=== PATIENT | female | born 1995 | race African-American/Black ===

== ENCOUNTER 2024-08-02 17:33 | Emergency (ER) | payer OTHER, SELFPAY ==
--- NOTE | 2024-08-02 17:45 | RT.EKG_ITS ---
APPROVED REPORT Exam: Resting ECG Reason for Exam: cc Patient Location: E HR:78 bpm ECG Measurements Heart Rate 78 AXIS SC 148 P 57 QRSd 72 QRS 74 QT 359 T 55 QTc 409 Conclusion Sinus rhythm, rate 78 No interval abnormalities No STEMI No priors available for comparison
[2024-08-02 18:00] VITALS: BP 114/80; PULSE 95; RESP 22; TEMP 36.9; O2SAT 97
--- NOTE | 2024-08-02 18:45 | DI.RAD_ITS ---
Exam(s) XR CHEST 2V PA LATERAL EXAM: XR CHEST 2V PA LATERAL CLINICAL HISTORY: cough/hemoptysis TECHNIQUE: 2D digital imaging was performed. Two views. COMPARISON: None FINDINGS: HEART: Normal size. Aorta: Not dilated. PULMONARY VASCULATURE: Normal. MEDIASTINUM: Unremarkable. LUNGS: Rounded area the right hilum roughly 5 cm. Adjacent rounded nodule in the right upper lobe me asuring 2.2 cm. Atelectasis or infiltrate involving the right middle lobe. The left lung appears cl ear. PLEURAL SPACE: No pleural effusion or pneumothorax. BONE:Mild dextroscoliosis. SOFT TISSUES: Unremarkable. IMPRESSION: Right upper lobe and hilar masses and versus infiltrate atelectasis of the right middle lobe. The fi ndings could represent pneumonia with adenopathy versus malignancy. DATA REPOSITORY: RADIATION DOSE DELIVERED:
[2024-08-02 19:16] VITALS: RESP 16
--- NOTE | 2024-08-02 19:16 | DI.VRAD_ITS ---
PROCEDURE INFORMATION: Exam: XR Chest Exam date and time: 08/02/2024 19:04 Age: 29 years old Clinical indication: Cough/hemoptysis TECHNIQUE: Imaging protocol: Radiologic exam of the chest. Views: 2 views. COMPARISON: No relevant prior studies available. FINDINGS: Lungs: Rounded 5 cm right suprahilar lesion, 2 cm nodular density in either right upper lobe or superior segment right lower lobe. Mild central interstitial thickening. Pleural spaces: No pleural effusion. No pneumothorax. Heart/Mediastinum: No cardiomegaly. Bones/joints: Minimal lumbar dextroscoliosis. IMPRESSION: Rounded 5 cm right suprahilar lesion, 2 cm nodular density in either right upper lobe or superior segment right lower lobe. Differential diagnosis includes multifocal pneumonia versus malignancy and or metastatic lesions. Postcontrast CT is recommended for workup. Dictated and Authenticated by: Nakita Rodriguez MD. Orderin St. Mohsen Byrnes MD
[2024-08-02 19:32] LABS: COVID-19 PCR Negative (Negative); Influenza A PCR Negative (Negative); Influenza B PCR Negative (Negative); RSV PCR Negative (Negative)
[2024-08-02 19:33] LABS: Source Nasopharynx
[2024-08-02 19:34] LABS: Abs Immature Grans 0.07 10^3/uL (0.0-0.06); Absolute Basophil Count 0.07 10^3/uL (0.0-0.2); Absolute Eosinophil Count 0.36 10^3/uL (0.0-0.7); Absolute Neutrophil Count 12.87 10^3/uL (1.2-6.7); Basophils % 0.4 %; Eosinophils % 2.2 %; HCT 37.6 % (36.0-46.0); Immature Grans % 0.4 %; Lymphocytes % 14.5 %; MCH 33.2 pg (27.0-33.0); MCHC 34.6 % (32.0-36.0); MCV 96 fL (80-95); MPV 9.4 fL (8.0-11.0); Monocytes % 4.8 %; Neutrophils % 77.7 %; Platelet Count 287 10^3/uL (130-400); RBC 3.91 10^6/uL (3.93-5.22); RDW 13.3 % (11.7-14.6); RDW-SD 47.4 fL; WBC 16.57 10^3/uL (4.4-10.8)
[2024-08-02] MEDS: Ketorolac 15 MG/ML VIAL IVP (19:45)
[2024-08-02 19:49] LABS: ALT 23 U/L (14-59); AST 16 U/L (15-37); Albumin 4.2 g/dL (3.4-5.0); Alkaline Phosphatase 64 U/L (46-116); Anion Gap 11.1 mmol/L (3-11); BUN 12 mg/dL (7-18); Bilirubin, Total 0.34 mg/dL (0.2-1.0); CO2 25.9 mmol/L (21.0-32.0); CREATININE 0.7 mg/dL (0.55-1.02); Calcium 9.5 mg/dL (8.5-10.1); Chloride 104 mmol/L (98-107); Estimated GFR 119.24 (mL/min/1.73m2); Glucose 75 mg/dL (74-106); Magnesium 1.7 mg/dL (1.8-2.4); Potassium 3.8 mmol/L (3.5-5.1); Sodium 141 mmol/L (136-145); Total Protein 7.4 g/dL (6.4-8.2)
[2024-08-02] MEDS: Normal Saline - Diluent 50 ML VIAL IJ ×2 (19:58→21:05)
[2024-08-02] MEDS: Omnipaque 350 MG/ML 100 ML BTL 70 ML IJ ×2 (19:59→21:04)
--- NOTE | 2024-08-02 20:01 | DI.CT_ITS ---
Exam(s) CT CHEST W EXAM: CT CHEST W CLINICAL HISTORY: hemoptysis, OCPs. R. lung mass vs PNA on CXR TECHNIQUE: Imaging Protocol: Axial computed tomography images with coronal and sagittal reformatted images were created and reviewed. Computer aided detection (CAD) was utilized. CONTRAST MATERIAL: Intravenous: Omnipaque 350 Contrast volume:70 ml. COMPARISON: No exams were available for comparison FINDINGS: Pulmonary parenchyma/mediastinum and Fern: 5 centimeter right superior hilar mass which appears low-d ensity which likely indicates necrosis. This causes attenuation of the pulmonary arteries is well as bronchial obstruction. A roughly 2 cm. There is atelectasis versus postobstructive infiltrate in t he right middle lobe. Mild areas of infiltration also noted in the right upper lobe. There is a nod ule in the right lower lobe measuring 8.5 mm. An additional 4 millimeter nodule is noted in the righ t lower lobe. 6 millimeter nodule anterior left upper lobe. Pleura: No effusion. No pneumothorax. Heart: The heart is not dilated. No coronary artery calcifications are seen. Aorta: Thoracic aorta non-dilated. No atherosclerotic changes. Pulmonary arteries: No gross evidence of emboli. Upper abdomen: No acute findings. Bones: Mild dextroscoliosis. No lytic or blastic lesions are identified. Soft tissues: Unremarkable. IMPRESSION: 5 centimeter necrotic right perihilar mass causing vascular and bronchial attenuation as well as post obstructive atelectasis/pneumonia in the right middle lobe. Findings are highly suspicious for malig chito. Additional right upper lobe infiltrates also present. Nodules in the right lower and left up per lobes are likely metastatic. RADIATION DOSE DELIVERED: 82.73mGy.cm Total DLP DATA REPOSITORY: All CT scans at this facility are submitted to the National Radiology Data Registry (NRDR) Dose Index Registry (DIR) with the [employer] (ACR). RADIATION OPTIMIZATION: All CT scans at this facility use at least one of these dose optimization te chniques: automated exposure control; mA and/or kV adjustment per patient size (includes targeted exa ms where dose is matched to clinical indication); or iterative reconstruction.
[2024-08-02 20:04] LABS: D-Dimer 474 ng/mlFEU (<500)
--- NOTE | 2024-08-02 20:09 | ED.GENADUL_ITS ---
Discharge Plan Disposition Patient Disposition: Home Condition: Stable Discharge Details Clinical Impression: Cough with hemoptysis, Hilar mass, Obstructive pneumonia Primary Care Provider: Unknown,Unknown ED Provider: Soniya Gloria Home Meds and New Rx's Prescriptions: New doxycycline hyclate 100 mg capsule 100 mg PO BID 6 Days Qty: 12 0RF amoxicillin-pot clavulanate 875-125 mg tablet 1 tab PO BID 6 Days Qty: 12 0RF Discharge Instructions Instructions: Coughing up blood Additional Instructions: You were seen in the emergency department today for evaluation of chest pain, shortness of breath, and coughing up blood. In our department you had a full physical examination performed, had laboratory studies performed, and had a CT scan that showed a mass in your right lung which is very concerning for cancer. It is unclear without biopsies and further studies whether this is a cancer from the lung itself, or whether this is a metastatic tumor from another part of the body. You did not have any other findings on the remainder of your CT of your abdomen or pelvis. The mass is causing partial obstruction of one of your airways, and you have a pneumonia but has developed behind this obstruction. For this reason we have started you on 2 antibiotics. Please take all this medication until it is gone, even if you start to feel better. In total you should have 7 days worth of medications. You will be referred to the interventional pulmonology team at [facility], and they plan to see you very early next week, at which time you will likely have a procedure called a bronchoscopy for biopsy. They will contact you to schedule this, and we will let you know if they need any additional testing before that time. Reasons to come back to an emergency department include coughing up more than 1 tablespoon of blood at a time, or a total of half a cup of blood over 24 hours. Additionally, you should return if you have worsening shortness of breath, develop a fever, change in mentation, or any other symptoms that cause concern. You can always return to this emergency department, or go to [facility] if that is closer or easier. Please follow-up with your primary care provider in the next few days to discuss this visit and any symptoms that change, worsen, or persist. Thank you for allo wing us to be part of your care. HPI General Mode of arrival: ambulatory . Date/Time Provider Initiated Documentation: 08/02/24 18:12 . Limitations to Documentation: no limitations . Information obtained by: patient and old records reviewed . HPI Narrative: HPI: This is a 29-year-old female patient without significant past medical history presenting for evaluation of 2 weeks of cough and hemoptysis. The patient reports that she has had a frequent cough, and initially just thought it was her typical winter illnesses. She has had some pain most notably in the right side of her chest when she breathes or coughs, but for the last several days has noticed bright red blood in her sputum, which prompted her to seek care tonight. She has not had any sick contacts, fever or chills, does not take any blood thinning medications. She is on oral contraceptives, does not have any history of thromboembolic disease. She has been using Tylenol and ibuprofen in the outpatient environment to manage her symptoms. She states that she has a lump in her breast, was diagnosed with an abscess several years ago, this has recurred and she has not yet had an evaluation by her outpatient providers. Exam: Gen: Awake and alert, in no apparent distress HEENT: Non-icteric sclera Neck: Supple Lungs: No apparent respiratory distress, normal respiratory effort. Lung sounds clear and equal bilaterally without wheezing, rhonchi, rales CV: Appears well perfused, heart with regular rate and rhythm, strong distal pulses Abdomen: Non-distended MSK: Moves 4 extremities without apparent limitation in ROM Skin: Visualized skin without rashes, cyanosis. Neuro: Normal Gait, no obvious focal deficits or facial asymmetry. Speaks in full, clear sentences. Psych: Appropriate for situation. MDM: This is a 29-year-old female patient presenting for evaluation of right sided chest pain, cough, and hemoptysis. My differential includes but is not limited to pneumonia, pulmonary hemorrhage, pulmonary embolism, viral URI. The location of the chest pain and its association with respiration and cough make me less concerned for ACS or cardiac abnormalities. The patient is a cigarette smoker, and while young I did consider pulmonary mass or malignancy. We will obtain a workup to include CBC, CMP, magnesium, Fluvid, and D-dimer. We will obtain an EKG and a chest x-ray. ED Course: EKG evaluated by myself, showing no evidence of acute ischemia, making ACS highly unlikely in this otherwise young and healthy person. Fluvid negative, CBC notable for a leukocytosis to 16, no anemia or thrombocytopenia. Chemistry panel without significant electrolyte derangements other than a very mildly low magnesium, renal function normal, no evidence of liver dysfunction. Chest x-ray reviewed by myself, and radiology notes 2 lesions, a 5 cm rounded lesion in the suprahilar area, and a 2 cm density in the right lung, concerning for multifocal pneumonia versus malignancy. Given this concerning finding, we did proceed with CT chest with contrast. Given our concern for mass, the decision to conduct the study with venous timed contrast was made in conjunction with our radiology techs, understanding that this will be less optimized for pulmonary embolism, which is lower on the differential. Reassuringly, the D-dimer was negative. Unfortunately, the CT of the chest reveals a right hilar and suprahilar mass with central necrosis, malignant appearing with metastatic pulmonary nodules and mediastinal lymph nodes. She does have some postobstructive consolidation. This finding was shared with the patient, and given her report of a breast lump, an exam was performed that reveals a firm, nontender, mobile 1 cm mass in the superior aspect of the right breast, and 1/2 cm mobile mass at the 5 o'clock position under the areola of the right breast. No overlying skin changes, patient reports occasional mild whitish discharge from the right nipple after showering. [facility] oncology was consulted, and I did order a CT abdomen pelvis to complete her metastatic workup. This was reviewed by myself and radiology notes no acute abnormalities or primary tumor findings. I did consult [facility], spoke with oncology and pulmonology, who recommended urgent referral to interventional pulmonology for bronchoscopy. They also recommend starting the patient on Augmentin and doxycycline for her postobstructive pneumonia. I spent an extended period of time discussing the findings with the patient, our concerns for likely malignant diagnosis, as well as return precautions especially as regards her hemoptysis. At this time, the patient has had a full medical evaluation and is safe for discharge to home. They are hemodynamically stable, ambulatory, and tolerating PO. They are understanding of the follow-up plan and return precautions. They left our facility without incident. Soniya Gloria MD Related Data Home Medications ?Medication ?Instructions ?Recorded ?Confirmed amoxicillin 875 mg-potassium 1 tab PO BID 6 days #12 tabs 08/02/24 clavulanate 125 mg tablet doxycycline hyclate 100 mg capsule 100 mg PO BID 6 days #12 caps 08/02/24 Previous Rx's ?Medication ?Instructions ?Recorded amoxicillin 875 mg-potassium 1 tab PO BID 6 days #12 tabs 08/02/24 clavulanate 125 mg tablet doxycycline hyclate 100 mg capsule 100 mg PO BID 6 days #12 caps 08/02/24 General Stated Complaint: Chest Pain REX: 3 Course Vital Signs Vital signs: Vital Signs Temperature 36.9 C 08/02/24 18:00 Pulse 95 H 08/02/24 18:00 Respiratory Rate 22 08/02/24 18:00 Blood Pressure 114/80 08/02/24 18:00 Pulse Oximetry 97 08/02/24 18:00 Temperature 36.9 C 08/02/24 18:00 Temperature Source Oral 08/02/24 18:00 Pulse 95 H 08/02/24 18:00 Respiratory Rate 16 08/02/24 19:16 Respiratory Effort Normal 08/02/24 19:16 Respiratory Depth Normal 08/02/24 19:16 Respiratory Pattern Normal 08/02/24 19:16 Blood Pressure 114/80 08/02/24 18:00 Blood Pressure Position Sitting 08/02/24 18:00 Pulse Oximetry 97 08/02/24 18:00 Oxygen Delivery Method Room Air 08/02/24 18:00 Oxygen Flow Rate 0 08/02/24 18:00 Pain Level 5 08/02/24 19:45 Lab/Test Results Lab/Test Results: Laboratory Tests Range/Units 08/02/24 08/02/24 18:05 19:28 WBC (4.4-10.8) 10^3/uL 16.57 H RBC (3.93-5.22) 10^6/uL 3.91 L Hgb (11.2-15.7) g/dL 13.0 Hct (36.0-46.0) % 37.6 MCV (80-95) fL 96 H MCH (27.0-33.0) pg 33.2 H MCHC (32.0-36.0) % 34.6 RDW (11.7-14.6) % 13.3 Plt Count (130-400) 10^3/uL 287 MPV (8.0-11.0) fL 9.4 Immature Gran % % 0.4 Neutrophils % % 77.7 Lymphocytes % % 14.5 Monocytes % % 4.8 Eosinophils % % 2.2 Basophils % % 0.4 Nucleated RBC % (0.0-0.3) % 0.0 Absolute Neutrophils (1.2-6.7) 10^3/uL 12.87 H Absolute Lymphocytes (1.2-3.4) 10^3/uL 2.40 Absolute Monocytes (0.1-0.8) 10^3/uL 0.80 Absolute Eosinophils (0.0-0.7) 10^3/uL 0.36 Absolute Basophils (0.0-0.2) 10^3/uL 0.07 Sodium (136-145) mmol/L 141 Potassium (3.5-5.1) mmol/L 3.8 Chloride (98-107) mmol/L 104 Carbon Dioxide (21.0-32.0) mmol/L 25.9 Anion Gap (3-11) mmol/L 11.1 H BUN (7-18) mg/dL 12 Creatinine (0.55-1.02) mg/dL 0.7 Est GFR (CKD-EPI 2020) (mL/min/1.73m2) 119.24 Glucose (74-106) mg/dL 75 Calcium (8.5-10.1) mg/dL 9.5 Magnesium (1.8-2.4) mg/dL 1.7 L Total Bilirubin (0.2-1.0) mg/dL 0.34 AST (15-37) U/L 16 ALT (14-59) U/L 23 Alkaline Phosphatase (46-116) U/L 64 Total Protein (6.4-8.2) g/dL 7.4 Albumin (3.4-5.0) g/dL 4.2 COVID-19 Source Nasopharynx SARS-CoV-2 (PCR) (Negative) Negative Influenza Type A (PCR) (Negative) Negative Influenza Type B (PCR) (Negative) Negative RSV (PCR) (Negative) Negative POC- Test(urine) Negative Medical Decision Making Quality:SDOH Health Related Social Needs: Health related social needs problems related to housin g/economic circumstances (Z59.89) PFSH All Active Problems (Updated 08/02/24 @ 22:33 by Soniya Gloria MD) Obstructive pneumonia (Acute) Hilar mass (Acute) Cough with hemoptysis (Acute) Social History Smoking/Tobacco Use Status: Current every day Tobacco Type: cigarettes Tobacco: How many years used: 12 Smoking risk assessment performed?: Yes Alcohol Intake: current Alcohol Intake frequency: 0-2 drinks per day Alcohol type: wine Drug use: Occasionally Substance use type: marijuana Housing: house
--- NOTE | 2024-08-02 20:16 | DI.VRAD_ITS ---
PROCEDURE INFORMATION: Exam: CT Chest With Contrast; Diagnostic Exam date and time: 08/02/2024 19:56 Age: 29 years old Clinical indication: Abnormal findings; Abnormal radiologic exam of lung or chest; Hemoptysis, ocps. R. Lung mass vs pna on cxr TECHNIQUE: Imaging protocol: Diagnostic computed tomography of the chest with contrast. 3D rendering (Not supervised by radiologist): MIP and/or 3D reconstructed images were created by the technologist. Radiation optimization: All CT scans at this facility use at least one of these dose optimization techniques: automated exposure control; mA and/or kV adjustment per patient size (includes targeted exams where dose is matched to clinical indication); or iterative reconstruction. Contrast material: [id number]; Contrast volume: 70 ml; Contrast route: INTRAVENOUS (IV); COMPARISON: CR XR CHEST 2V PA LATERAL 08/02/2024 19:04 FINDINGS: Lungs: Centrally necrotic appearing masslike 5 x 4 x 5 cm right hilar/suprahilar lesion with satellite nodules right upper lobe as well as mild postobstructive consolidation right upper lobe and moderate postobstructive consolidation right middle lobe. Satellite nodules in right lower lobe and lingula are probably metastatic. Pleural spaces: No pneumothorax. No pleural effusion. Heart: No cardiomegaly. No pericardial effusion. Lymph nodes: Metastatic appearing middle and right hilar adenopathy. Vasculature: Mass effect on right upper and middle pulmonary artery branches with chronic morphology, from the right hilar mass. No gross PA filling defects on this phase of imaging. Bones/joints: No acute fracture or subluxation. Mild thoracic scoliosis. Soft tissues: No suspicious lesions. IMPRESSION: 1. Malignant appearing right hilar/suprahilar mass. Metastatic pulmonary nodules, likely metastatic mediastinal lymph nodes. [id number] right upper and right middle lobe postobstructive consolidation. 2. Additional findings as described. Dictated and Authenticated by: Nakita Rodriguez MD. Orderin [facility]. Mohsen Byrnes MD
--- NOTE | 2024-08-02 21:12 | DI.CT_ITS ---
Exam(s) CT ABDOMEN PELVIS W EXAM: CT ABDOMEN PELVIS W CLINICAL HISTORY: Eval malignancy. TECHNIQUE: Imaging Protocol: Axial computed tomography images with coronal and sagittal reformatted images were created and reviewed CONTRAST MATERIAL: Intravenous: Omnipaque 350 Contrast volume:70 ml Oral: no COMPARISON: No exams were available for comparison FINDINGS: ABDOMEN and PELVIS: Lung Bases: Right middle lobe infiltrate. Please see separate CT chest report. Liver: Normal density. No suspicious mass. Gallbladder and biliary tract: No radiodense calculus. No wall thickening or pericholecystic fluid. No biliary dilation. Pancreas: Normal density. No abnormal calcifications or inflammatory process. No evidence of mass. Spleen: Normal. Kidneys: Normal size, contour and axis. No radiodense stones. No obstructive uropathy. No suspicious masses seen. Adrenal glands: No masses seen. Vasculature: Abdominal aorta non-dilated. Soft tissues: Unremarkable. Bladder: No gross wall thickening. No calculi.No focal mass. Bowel: No obstruction. No bowel wall thickening. Appendix normal. Peritoneal cavity: No ascites. No focal collection. No mesenteric inflammatory response. No free air . Bones: Unremarkable for age. No lytic or blastic lesions Reproductive organs: IUD in uterus. Dominant left follicle. Lymph nodes: No pathologically enlarged lymph nodes. IMPRESSION:: No acute abnormality in the abdomen or pelvis. RADIATION DOSE DELIVERED: 287.16mGy.cm Total DLP DATA REPOSITORY: All CT scans at this facility are submitted to the National Radiology Data Registry (NRDR) Dose Index Registry (DIR) with the [employer] (ACR). RADIATION OPTIMIZATION: All CT scans at this facility use at least one of these dose optimization te chniques: automated exposure control; mA and/or kV adjustment per patient size (includes targeted exa ms where dose is matched to clinical indication); or iterative reconstruction.
--- NOTE | 2024-08-02 21:22 | DI.VRAD_ITS ---
PROCEDURE INFORMATION: Exam: CT Abdomen And Pelvis With Contrast Exam date and time: 08/02/2024 21:03 Age: 29 years old Clinical indication: Other: Eval malignancy TECHNIQUE: Imaging protocol: Computed tomography of the abdomen and pelvis with contrast. Radiation optimization: All CT scans at this facility use at least one of these dose optimization techniques: automated exposure control; mA and/or kV adjustment per patient size (includes targeted exams where dose is matched to clinical indication); or iterative reconstruction. Contrast material: [id number]; Contrast volume: 70 ml; Contrast route: INTRAVENOUS (IV); COMPARISON: CT CHEST W 08/02/2024 19:56 FINDINGS: Lungs: Regarding the lung bases, please see same day CT thorax. Liver: No mass. Gallbladder and biliary ducts: No calcified stones. No gross ductal dilation. Pancreas: No ductal dilation. No mass . Spleen: No splenomegaly or suspicious lesions. Adrenal glands: No suspicious mass. Kidneys and ureters: No hydronephrosis. No masses. Stomach and bowel: No obstruction. No mucosal thickening. Appendix: No evidence of appendicitis. Intraperitoneal space: No free air. No significant fluid collection. Vasculature: No abdominal aortic aneurysm. Lymph nodes: No significantly enlarged lymph nodes. Urinary bladder: Contrast in the urinary bladder, satisfactory appearance. Reproductive: Cystic 35 mm left adnexal structure, most likely a dominant physiologic follicle. IUD in the uterus in the expected position. Normal CT appearance of the right adnexa. Bones/joints: No acute fracture or subluxation. Soft tissues: No suspicious lesions. IMPRESSION: No focal pathology is seen. IUD in the uterus. Dictated and Authenticated by: Nakita Rodriguez MD. Orderin [facility]. Mohsen Byrnes MD
[2024-08-02] MEDS: Amox. 875/Clav. 125, 2 TABS/BTL 1 TAB PO (22:42)
[2024-08-02] MEDS: Amoxicillin 875/Clav. 125 TAB PO (22:43)
[2024-08-02] MEDS: Doxycycline Hyclate 100 MG CAP PO (22:43)
[2024-08-02] MEDS: Doxycycline Hyclate 100 MG, 2 CAPS/BTL PO (22:43)
[2024-08-02 22:48] VITALS: BP 112/78; PULSE 83; RESP 16; TEMP 36.8; O2SAT 98
--- NOTE | 2024-08-03 09:06 | NUR.NOTE ---
Nursing Note:Patient and mother had questions about the referral to [facility] [place] will happen. Instructions were [facility] would contact the patient
== END 2024-08-02 22:48 | disposition home or self-care (01) ==
PROVIDERS: Emergency Provider Emergency Medicine
DX: J18.8 Other pneumonia, unspecified organism (principal); R04.2 Hemoptysis; R05.9 Cough, unspecified; R06.02 Shortness of breath; R07.9 Chest pain, unspecified; R91.8 Other nonspecific abnormal finding of lung field; F17.210 Nicotine dependence, cigarettes, uncomplicated; Z59.89 Other problems related to housing and economic circumstances
CPT/HCPCS: 80053; 81025; 87637; 93005; 96374; 99285; 71046; 71260; 74177; 83735; 85025; 85379; 93010; J1885; J3490

== ENCOUNTER 2024-09-27 15:33 | Outpatient (CLI) | payer OTHER, SELFPAY ==
--- NOTE | 2024-09-27 | DI.RAD_ITS ---
Exam(s) XR HIP LT AP LAT ONLY EXAM: XR HIP LT AP LAT ONLY CLINICAL HISTORY: SEVERE SUDDEN ONSET PAIN, KNOWN ST IV NSCLC, LT PROX FEMUR METS. TECHNIQUE: 2D digital imaging was performed of the left hip. Two views were obtained. AP and later al views were obtained. COMPARISON: CT CT ABDOMEN PELVIS W from 08/02/2024 FINDINGS: BONES: No acute fracture is present. There is a destructive lesion involving the medial aspect of the proximal femoral diaphysis with extension into the lesser trochanter. JOINTS: No dislocation present. SOFT TISSUE: There is an IUD in the pelvis. IMPRESSION: Destructive lesion involving the medial aspect of the proximal femoral diaphysis. Metastatic disease is suspected. Primary osseous malignancy cannot be entirely excluded. DATA REPOSITORY: RADIATION DOSE DELIVERED:
== END 2024-09-27 15:53 ==
PROVIDERS: PCP Nurse Practitioner Family; Visit Provider Radiology Radiation Oncology
DX: Z79.51 Long term (current) use of inhaled steroids (principal); C79.51 Secondary malignant neoplasm of bone; M25.552 Pain in left hip
CPT/HCPCS: 73502

== ENCOUNTER 2024-09-28 15:21 | Inpatient (IN) | payer OTHER, SELFPAY ==
[2024-09-28] VITALS (52 sets, daily range): BP systolic 65–119; BP diastolic 23–85; PULSE 94–120; RESP 14–40; TEMP 36.3–36.9; O2SAT 93–100
--- NOTE | 2024-09-28 15:43 | W.ED.GENAD ---
Discharge Plan Disposition Patient Disposition: Admit to [facility] Condition: Stable Discharge Details Clinical Impression: Intractable pain, Metastatic lung cancer (metastasis from lung to other site) Admit Date/Time: 09/28/24 21:36 Admit Provider: Guillermo Gomes Attending Provider: Guillermo Gomes Primary Care Provider: Tania Lezama ED Provider: Joana Melgar General Mode of arrival: ambulatory. Date/Time Provider Initiated Documentation: 09/28/24 15:24. Limitations to Documentation: no limitations. Information obtained by: patient, RN notes reviewed and old records reviewed. HPI Narrative: 29-year-old female presents to the ER with a chief complaint of severe left hip pain and right shoulder pain which has been worsening over the last couple of days. Patient was recently diagnosed with a lung mass with mets to the left hip in July of this year. She recently started Chemotherapy on Tuesday and had a right breast biopsy on September 26. She reports taking three 5 mg oxycodones at a time along with Tylenol and ibuprofen and she did put a fentanyl patch on last night around 8 PM which she currently has at this time. She reports sharp shooting pains to her left hip and inability to sleep due to the pain. She denies any fever or chills or any other associated symptoms or concerns denies any recent trauma or falls. She is tachycardic upon arrival. Of note she did have x-rays done yesterday here at this facility which showed a destructive lesion to the left hip with extension into the trochanter. Related Data Home Medications ?Medication ?Instructions ?Recorded ?Confirmed codeine 10 mg-guaifenesin 100 mg/5 5 ml PO Q4H PRN 08/24/24 09/28/24 mL oral liquid dorzolamide 2 % eye drops 1 drp ophthalmic (eye) BID 08/24/24 09/28/24 latanoprost 0.005 % eye drops 1 drp ophthalmic (eye) QPM 08/24/24 09/28/24 levonorgestrel 14 mcg/24 hr (up to 1 device intrauterine ONCE 08/24/24 09/28/24 3 yrs) 13.5 mg intrauterine device prednisolone acetate 1 % eye 1 drp ophthalmic (eye) TID 08/24/24 09/28/24 drops,suspension albuterol 90 mcg/actuation aerosol 180 mcg inhalation Q4H PRN 09/28/24 09/28/24 inhaler brimonidine 0.2 %-timolol 0.5 % 1 drp ophthalmic (eye) TID 09/28/24 09/28/24 eye drops (Combigan) carboplatin IV 09/28/24 celecoxib 200 mg capsule (Celebrex) 200 mg PO BID 09/28/24 09/28/24 dexamethasone 4 mg tablet 4 mg PO DAILY 09/28/24 09/28/24 duloxetine 30 mg capsule,delayed 30 mg PO DAILY 09/28/24 09/28/24 release (Cymbalta) durvalumab IV 09/28/24 fentanyl 12 mcg/hr transdermal 1 patch transdermal Q72H 09/28/24 09/28/24 patch folic acid 1 mg tablet 1 mg PO DAILY 09/28/24 09/28/24 oxycodone 5 mg tablet 10 mg PO Q4H 09/28/24 09/28/24 pemetrexed IV 09/28/24 prochlorperazine maleate 10 mg 10 mg PO Q6H PRN 09/28/24 09/28/24 tablet (Compazine) tremelimumab-actl IV 09/28/24 Allergies Allergy/AdvReac Type Severity Reaction Status Date / Time No Known Allergies Allergy Verified 09/28/24 15:30 General Stated Complaint: GenMedical REX: 3 Review of Systems All systems reviewed & are unremarkable except as noted in HPI and below Constitutional Constitutional: Reports as per HPI, Reports body ache(s) and Denies fever(s) Cardiovascular Cardiovascular: Reports dyspnea on exertion Respiratory Respiratory: Reports cough, Denies hemoptysis, Denies excessive phlegm production and Reports dyspnea on exertion Gastrointestinal Gastrointestinal: Denies diarrhea, Denies nausea and Denies vomiting Musculoskeletal Musculoskeletal: Reports as per HPI, Reports arthralgias (Right shoulder and left leg) and Reports radiating pain into limb Exam Narrative Exam Narrative: Constitutional: Alert and oriented x3. Appears stated age. Thin body habitus. Head: Normocephalic, no trauma. Eyes: Pupils PERRL, Red reflex noted, EOM's intact. Eyelids symmetrical without lesions, discharge, or swelling. ENT: Bilateral TM's WNL, External ear normal to inspection, no mastoid TTP, swelling, or erythema, Nasal turbinates WNL, no nasal discharge. Normal dentition, Posterior pharynx WNL, no exudate. Chest: Tachycardic upon arrival, rate of 120 normal S1, S2, distal pulses intact. Resp: Absent lung sounds noted on the right, lungs clear to auscultation on the left. Abdomen: Soft, non-distended, Normoactive bowel sounds all 4 quads. Approximately 3 cm palpable nodule noted to her anterior mid abdomen. Musculoskeletal: Normal gait, Moves all 4 extremities without difficulty. Skin: Capillary refill less than 2 sec. Neurologic: Cranial nerves II-XII intact. Alert and oriented x 3. Motor: No deficits noted. Sensory: Intact bilaterally all 4 extremities. Hematologic/Lymphatic: No ecchymosis, no lymphadenopathy. Course Vital Signs Vital signs: Vital Signs Temperature 36.8 C 09/28/24 15:25 Pulse 120 H 09/28/24 15:25 Respiratory Rate 22 09/28/24 15:25 Blood Pressure 119/85 09/28/24 15:25 Pulse Oximetry 99 09/28/24 15:25 Temperature 36.8 C 09/28/24 15:32 Temperature Source Oral 09/28/24 15:32 Pulse 120 H 09/28/24 15:32 Respiratory Rate 22 09/28/24 15:32 Blood Pressure 119/85 09/28/24 15:32 Blood Pressure Position Sitting 09/28/24 15:32 Pulse Oximetry 99 09/28/24 15:32 Oxygen Delivery Method Room Air 09/28/24 15:32 Oxygen Flow Rate 0 09/28/24 15:32 Pain Level 8 09/28/24 15:32 Medical Decision Making 29-year-old female presents to the ER with a chief complaint of severe left hip pain and right shoulder pain which has been worsening over the last couple of days. Patient was recently diagnosed with a lung mass with mets to the left hip in July of this year. She recently started Chemotherapy on Tuesday and had a right breast biopsy on September 26. She reports taking three 5 mg oxycodones at a time along with Tylenol and ibuprofen and she did put a fentanyl patch on last night around 8 PM which she currently has at this time. She reports sharp shooting pains to her left hip and inability to sleep due to the pain. She denies any fever or chills or any other associated symptoms or concerns denies any recent trauma or falls. She is tachycardic upon arrival. Of note she did have x-rays done yesterday here at this facility which showed a destructive lesion to the left hip with extension into the trochanter. Workup ordered including CBC CMP, CT pelvis and extremity and a chest x-ray. Given 0.5 mg of Dilaudid IV. Chest x-ray looks markedly worse on the right side however this could be due to the fact that she recently had a breast biopsy and started chemotherapy today. Her white blood cell count is 20,000, I did discuss some additional imaging including a CT of her chest to rule out pneumonia which she verbalized understanding with and is in agreement with. HR improved to 103 at this time. 1758: [facility] [place] consult with oncology. Request that radiology push the [place] [facility] [place] Of note patient is reporting a palpable mass noted to her mid abdomen above her umbilicus. She reports that she mentioned it to her oncology team and they told her it was due to her coughing. It does feel firm, and movable. She reports that it is slightly tender. On the chest CT from August 02 it does not appear to be there. 1829: Spoke with Dr. Pham with Heme onc, who reports that patient got Immunotherapy and chemotherapy he recommends troponin to rule out myocarditis, and that this WBC count is not expected. At this time the CT results show progression of the disease with complete obstruction of the right main pulmonary artery, right mainstem bronchus and the right upper lobe pulmonary veins. The right pulmonary arteries do not opacify secondary to the obstruction and there is no evidence of a left-sided pulmonary embolism. 1842: [facility] [place] and to speak with cardio-thoracic specialist. They will call back. 1844: Spoke with Dr. Zapata hospitalist and Dr. Mason with Thoracic surgery discussed patient case in details with them they were not able to view her CT from today. That image was pushed. At this time they are recommending further evaluation if pneumonia is a possibility they do not recommend antibiotics at this time. I did add on a lactate procalcitonin and blood cultures to further eval if this is an infectious versus mechanical lung disease. They do recommend to contact them if patient's condition changes. Will contact hospitalist. Dr. Zapata is the accepting physician. 2100: Spoke with Dr. bird with Hospitalist who agrees to accept patient for admission here pending [place] [facility] [place] Patient transferred up to the floor in hemodynamically stable condition. Bedside POCUS cardiac exam performed with Dr. Acevedo, normal cardiac function noted. Please see his procedure note. This text was generated using [employer] dictation system, please disregard any oddities of phrase or misspellings. Medical Records Medical records reviewed: Yes I reviewed the patient's medical records. Medical records narrative: X-ray results from 09/27/2024 EXAM: XR HIP LT AP LAT ONLY CLINICAL HISTORY: SEVERE SUDDEN ONSET PAIN, KNOWN ST IV NSCLC, LT PROX FEMUR METS. TECHNIQUE: 2D digital imaging was performed of the left hip. Two views were obtained. AP and lateral views were obtained. COMPARISON: CT CT ABDOMEN PELVIS W from 08/02/2024 FINDINGS: BONES: No acute fracture is present. There is a destructive lesion involving the medial aspect of the proximal femoral diaphysis with extension into the lesser trochanter. JOINTS: No dislocation present. SOFT TISSUE: There is an IUD in the pelvis. IMPRESSION: Destructive lesion involving the medial aspect of the proximal femoral diaphysis. Metastatic disease is suspected. Primary osseous malignancy cannot be entirely excluded. Imaging Data Radiologic Study: Imaging: X-Ray Radiologist's impression: FINDINGS: MEDIASTINUM: Normal. HEART: Normal. PULMONARY VASCULATURE: Normal. LUNGS: The left lung remains clear and hyperlucent. In the right lung, there is now elevation of the right hemidiaphragm suggesting volume loss. There is a central opacity again seen consistent with the patient's known carcinoma. There is a most likely postobstructive atelectasis. PLEURAL SPACE: No pleural effusion or pneumothorax. BONE:Within normal limits for the patient's age. There is a right convex curvature of the thoracolumbar spine again seen. OTHER FINDINGS:Normal. IMPRESSION: 1. Interval right hemithorax volume loss with elevation of the right hemidiaphragm and a rightward shift of the midline. 2. The patient has a known central right hilar lung carcinoma. There is now opacification involving the inferior half of the lung likely reflect reflecting postobstructive atelectasis or possible pneumonia. 3. The left lung remains clear Lab Data Lab results reviewed: Yes I reviewed the patient's lab results. Labs: Laboratory Tests Range/Units 09/28/24 15:48 WBC (4.4-10.8) 10^3/uL 20.93 H RBC (3.93-5.22) 10^6/uL 4.17 Hgb (11.2-15.7) g/dL 14.1 Hct (36.0-46.0) % 41.3 MCV (80-95) fL 99 H MCH (27.0-33.0) pg 33.8 H MCHC (32.0-36.0) % 34.1 RDW (11.7-14.6) % 13.5 Plt Count (130-400) 10^3/uL 300 MPV (8.0-11.0) fL 8.9 Immature Gran % % 0.6 Neutrophils % % 91.7 Lymphocytes % % 5.1 Monocytes % % 1.3 Eosinophils % % 1.1 Basophils % % 0.2 Nucleated RBC % (0.0-0.3) % 0.0 Absolute Neutrophils (1.2-6.7) 10^3/uL 19.19 H Absolute Lymphocytes (1.2-3.4) 10^3/uL 1.07 L Absolute Monocytes (0.1-0.8) 10^3/uL 0.27 Absolute Eosinophils (0.0-0.7) 10^3/uL 0.23 Absolute Basophils (0.0-0.2) 10^3/uL 0.04 Sodium (136-145) mmol/L 134 L Potassium (3.5-5.1) mmol/L 3.9 Chloride (98-107) mmol/L 98 Carbon Dioxide (21.0-32.0) mmol/L 25.8 Anion Gap (3-11) mmol/L 10.2 BUN (7-18) mg/dL 16 Creatinine (0.55-1.02) mg/dL 0.7 Est GFR (CKD-EPI 2020) (mL/min/1.73m2) 119.24 Glucose (74-106) mg/dL 127 H Calcium (8.5-10.1) mg/dL 10.8 H Magnesium (1.8-2.4) mg/dL 1.8 Total Bilirubin (0.2-1.0) mg/dL 1.0 AST (15-37) U/L 67 H ALT (14-59) U/L 75 H Alkaline Phosphatase (46-116) U/L 80 Total Protein (6.4-8.2) g/dL 8.1 Albumin (3.4-5.0) g/dL 4.4 Quality:SDOH Health Related Social Needs: Health related social needs problems related to housing/economic circumstances (Z59.89) 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 PAWSS Have you Been Recently Intoxicated or Drunk Within the Last 30 days?: No Have you Ever Experienced Previous Episodes of Alcohol Withdrawal?: No Have you ever Experienced Withdrawal Seizures?: No Have you ever Experienced Delirium Tremens(DT)s?: No Have you ever undergone Alcohol Rehabilitation Treatment (i.e, inpt ot outpatient treatment programs)?: No Have you ever Experienced Blackouts?: No Have you ever Combined Alcohol with other Downers within the last 90 days?: No Have you ever Combined Alcohol with any other Substance of Abuse during the last 90 days?: No Positive Blood Alcohol level on Presentation? [PCS.BAL]: No Evidence of Increased Autonomic Activity (i.e. HR>120, tremor, sweating, agitation, nausea)?: No Result: 0
[2024-09-28] MEDS: HYDROmorphone 2 MG/ML SYR 0.5 MG IVP ×4 (15:54→20:52)
[2024-09-28 15:57] LABS: Abs Immature Grans 0.12 10^3/uL (0.0-0.06); Absolute Basophil Count 0.04 10^3/uL (0.0-0.2); Absolute Eosinophil Count 0.23 10^3/uL (0.0-0.7); Absolute Lymphocyte Count 1.07 10^3/uL (1.2-3.4); Absolute Monocyte Count 0.27 10^3/uL (0.1-0.8); Absolute Neutrophil Count 19.19 10^3/uL (1.2-6.7); Basophils % 0.2 %; Eosinophils % 1.1 %; HCT 41.3 % (36.0-46.0); HGB 14.1 g/dL (11.2-15.7); Immature Grans % 0.6 %; Lymphocytes % 5.1 %; MCH 33.8 pg (27.0-33.0); MCHC 34.1 % (32.0-36.0); MCV 99 fL (80-95); MPV 8.9 fL (8.0-11.0); Monocytes % 1.3 %; Neutrophils % 91.7 %; Platelet Count 300 10^3/uL (130-400); RBC 4.17 10^6/uL (3.93-5.22); RDW 13.5 % (11.7-14.6); RDW-SD 48.8 fL; WBC 20.93 10^3/uL (4.4-10.8)
--- NOTE | 2024-09-28 16:00 | DI.RAD_ITS ---
Exam(s) XR CHEST 2V PA LATERAL EXAM: XR CHEST 2V PA LATERAL CLINICAL HISTORY: Right lung mass, Right shoulder pain TECHNIQUE: 2D digital imaging was performed of the chest. Two images were obtained. PA and lateral views were obtained. COMPARISON: CR,XR XR CHEST 2V PA LATERAL from 08/02/[address] CHEST W from 08/02/2024 FINDINGS: MEDIASTINUM: Normal. HEART: Normal. PULMONARY VASCULATURE: Normal. LUNGS: The left lung remains clear and hyperlucent. In the right lung, there is now elevation of the right hemidiaphragm suggesting volume loss. There is a central opacity again seen consistent with t he patient's known carcinoma. There is a most likely postobstructive atelectasis. PLEURAL SPACE: No pleural effusion or pneumothorax. BONE:Within normal limits for the patient's age. There is a right convex curvature of the thoracolum bar spine again seen. OTHER FINDINGS:Normal. IMPRESSION: 1. Interval right hemithorax volume loss with elevation of the right hemidiaphragm and a rightward sh ift of the midline. 2. The patient has a known central right hilar lung carcinoma. There is now opacification involving the inferior half of the lung likely reflect reflecting postobstructive atelectasis or possible pneum onia. 3. The left lung remains clear. DATA REPOSITORY: RADIATION DOSE DELIVERED:
[2024-09-28 16:14] LABS: ALT 75 U/L (14-59); AST 67 U/L (15-37); Albumin 4.4 g/dL (3.4-5.0); Alkaline Phosphatase 80 U/L (46-116); Anion Gap 10.2 mmol/L (3-11); BUN 16 mg/dL (7-18); CO2 25.8 mmol/L (21.0-32.0); CREATININE 0.7 mg/dL (0.55-1.02); Calcium 10.8 mg/dL (8.5-10.1); Chloride 98 mmol/L (98-107); Estimated GFR 119.24 (mL/min/1.73m2); Glucose 127 mg/dL (74-106); Magnesium 1.8 mg/dL (1.8-2.4); Potassium 3.9 mmol/L (3.5-5.1); Sodium 134 mmol/L (136-145); Total Protein 8.1 g/dL (6.4-8.2)
--- NOTE | 2024-09-28 16:28 | DI.CT_ITS ---
Exam(s) CT PELVIC WO EXAM: CT PELVIC WO CLINICAL HISTORY: Left hip pain, hx CA. TECHNIQUE: Imaging Protocol: Axial computed tomography images with coronal and sagittal reformatted images were created and reviewed. COMPARISON: CT CT ABDOMEN PELVIS W from 08/02/2024 FINDINGS: Bones: No fracture or dislocation. Bony alignment is satisfactory. No cellulitic or osteomyelitic changes are identified. There is no evidence of joint space narrowing or cystic degeneration seen. T here is a lytic lesion involving the medial aspect of the proximal femoral diaphysis and the lesser t rochanter. No other lytic or sclerotic lesions are seen. Soft Tissues: There is an IUD in place. There is a 4 cm right and a 2.6 cm left adnexal cyst. These are likely ovarian physiologic in origin. There is a fluid collection seen on the right which appea rs to lie in the right aspect of the vagina and extend into the right labia majora. This likely refl ects a benign lesion such as a Bartholin's gland cyst. No inflammatory changes are seen around the c yst. IMPRESSION: Lytic lesion involving the medial aspect of the proximal left femur suspicious for metastatic disease or primary osseous neoplasm. Infection cannot be excluded. RADIATION DOSE DELIVERED: 194.99mGy.cm Total DLP 194.99mGy.cmTotal DLP 194.99mGy.cmTotal DLP DATA REPOSITORY: All CT scans at this facility are submitted to the National Radiology Data Registry (NRDR) Dose Index Registry (DIR) with the [employer] (ACR). RADIATION OPTIMIZATION: All CT scans at this facility use at least one of these dose optimization te chniques: automated exposure control; mA and/or kV adjustment per patient size (includes targeted exa ms where dose is matched to clinical indication); or iterative reconstruction.
[2024-09-28] MEDS: Normal Saline 500 ML IV (16:29)
--- NOTE | 2024-09-28 16:30 | DI.CT_ITS ---
Exam(s) CT CHEST PE CTA EXAM: CT CHEST PE CTA CLINICAL HISTORY: Right lung mass. TECHNIQUE: Imaging Protocol: Axial CT angiography was performed with multi-slice acquisition and mu lti-planar and/or 3D reconstructions. Lung Computer Aided Detection (CAD) was utilized. CONTRAST MATERIAL: Intravenous: Omnipaque 350 contrast volume:60 mL COMPARISON: CT CT CHEST W from 08/02/2024 FINDINGS: Tracheobronchial tree: The patient has a known right central/hilar mass consistent with lung carcinom a. Since the prior examination, there has been complete obstruction of the right mainstem bronchus, the right main pulmonary artery in the right upper lobe pulmonary vein. There is now prominence of t he azygos vein. There is also now postobstructive opacities in the right lower lobe. There is now c omplete opacification/consolidation of the right middle lobe and near complete consolidation of the r ight upper lobe. There is elevation of the right hemidiaphragm and a rightward shift of the midline structures. Pulmonary parenchyma: There has been interval increase in size of the nodule in the anterior aspect o f the left upper lobe. It now measures 9 mm compared to 6 mm on the prior examination. Pulmonary Arteries: There is no evidence of a pulmonary embolism in the left lung. The right pulmona ry arteries and veins do not enhance secondary to central obstruction by the central neoplasm. Mediastinum and Fern: No evidence of left hilar adenopathy. The esophagus is grossly unremarkable. Visualized thyroid gland: Unremarkable. Pleura: There is a right pleural effusion. No left pleural effusion. No pneumothorax. Heart: The heart is not dilated. No coronary artery calcifications are seen. No pericardial effusion. Aorta: Thoracic aorta non-dilated. No evidence of dissection. Upper abdomen: Unremarkable. Soft tissues: Unremarkable. Bones: Within normal limits for the patient's age. IMPRESSION: 1. Interval progression of disease involving the right central lung carcinoma. There has been interv al complete obstruction of the right main pulmonary artery, the right mainstem bronchus and the right upper lobe pulmonary veins. 2. The right pulmonary arteries do not opacify secondary to the obstruction. There is no evidence of a left-sided pulmonary embolism. 3. Postobstructive consolidation is seen in the right upper, middle and lower lobes. 4. Interval development of a small right pleural effusion. 5. Overall, significant progression of disease in the chest since 08/02/2024. RADIATION DOSE DELIVERED: 66.77mGy.cm Total DLP DATA REPOSITORY: All CT scans at this facility are submitted to the National Radiology Data Registry (NRDR) Dose Index Registry (DIR) with the [employer] (ACR). RADIATION OPTIMIZATION: All CT scans at this facility use at least one of these dose optimization te chniques: automated exposure control; mA and/or kV adjustment per patient size (includes targeted exa ms where dose is matched to clinical indication); or iterative reconstruction.
[2024-09-28] MEDS: Omnipaque 350 MG/ML 100 ML BTL 60 ML IJ (17:32)
[2024-09-28] MEDS: Normal Saline - Diluent 50 ML VIAL IJ (17:33)
--- NOTE | 2024-09-28 19:00 | RT.EKG_ITS ---
APPROVED REPORT Exam: Resting ECG Reason for Exam: Tachycardia Patient Location: E HR:99 bpm ECG Measurements Heart Rate 99 AXIS GA 146 P 144 QRSd 71 QRS 141 QT 333 T [id number] QTc 428 Conclusion Sinus rhythm...normal P axis, V-rate 60- 99 Left atrial enlargement...P, P'>60mS, <-0.15mV V1 No STEMI
[2024-09-28 19:19] LABS: Troponin I 6 ng/L (<or=51)
[2024-09-28] MEDS: Lidocaine 5% Patch 1 PATCH TP (20:52)
[2024-09-28 21:11] LABS: Lactate 0.9 mmol/L (<or=2.0)
--- NOTE | 2024-09-28 21:12 | HPE_ITS ---
Date of service: 09/28/24 Time of Service: 21:12 Assessment and Plan Assessment and plan (1) Intractable pain: Start date: 09/28/24 Status: Acute Assessment and plan: This is a 29-year-old lady who was recently diagnosed with 5 cm right lung mass now. She progressed with postobstructive lung collapse and loss of volume on the right. Right hemidiaphragm is elevated. She does have an elevated WBC but no fever and labs overall are not indicating acute postobstructive pneumonia with procalcitonin elevated but this can be seen with the patient's chemotherapy and with her cancer. This would not be a good marker to follow. She will have IV Dilaudid for breakthrough pain. Her other images will be continued the same. She does [place] [facility] when bed is available. She will have increased symptomatic treatment for her dry cough. Will trend labs and if she has fever and increasing WBC we should consider broad-spectrum IV antibiotic therapy will postobstructive pneumonia. She is a full code. (2) Leukocytosis (leucocytosis): Start date: 09/28/24 Status: Acute Assessment and plan: Her WBC has been elevated and may be exacerbated by her recent treatment with steroids and the stress of her disease with treatment of. Monitor with trending CBCs and if worsening especially with fever, patient should be started on broad- spectrum IV antibiotic therapy for postobstructive pneumonia. She is immunocompromised. (3) Non-small cell carcinoma of lung, stage 4: Status: Chronic Assessment and plan: Diagnosed in July with confirmation biopsy early September now on chemotherapy and considering emergent radiation therapy to her bone metastases because of intractable pain. She will be followed up by oncology, radiation oncology and thoracic surgery at [facility] History of Present Illness History of Present Illness Chief Complaint: Intractable pain with stage IV lung cancer recently diagnosed. Narrative: This is a 29-year-old female patient who presented to the ED with a cough and hemoptysis prompting evaluation in early July 2024. She was found to have a large right hilar, central lung mass at that time and now has postobstructive collapse of the right upper and middle lung with elevated WBC persisting and slightly worse from previous measurement but no fever. She is not having active hemoptysis but a dry persistent cough. 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 She was seen in [place] and [facility] [place] in early September. She was just started on chemotherapy earlier this week but her pain has been escalating over the last couple days. She is on a fentanyl patch and has been taking increasing doses of oxycodone without relief. She presented to the ED and repeat CAT scan did show possible progression of her disease in the short interval having just begun chemotherapy. [facility] [place], Dr. Pham was called and deferred to hospitalist for transfer and hospitalization for possible emergent radiation therapy to her bone metastases for relief of pain. They did not advise initiating antibiotics unless she has fever and labs were positive for possible early sepsis with only the procalcitonin elevated. She was not initiated on antibiotics with her lactate normal and no other signs of acute infection. This can be reevaluated once she is transferred to [facility] [place] with Dr. Zapata has excepting physician awaiting bed availability tomorrow. [facility] [place], Dr. Mason was also consulted because of the obstructive nature of her tumor manifested on CT scan and he advised there is no emergent surgery needed at this time but will follow as needed at [facility] once patient is transferred. She will receive IV Dilaudid which is helpful for her breakthrough pain and continue oxycodone orally and fentanyl patch topically. She is also on Celebrex and Tylenol as well as Cymbalta which will be continued. She was given dexamethasone last week before initiating chemotherapy and this will be reinitiated because of her bone pain and possible inflammation associated with her metastatic disease. If she has fever, she will be initiated on broad-spectrum antibiotic therapy covering postobstructive pneumonia for which she is at risk. I initiated increased symptomatic care for her cough with Tessurinder Perles scheduled and will continue her guaifenesin with codeine cough syrup as needed. She also will be continued on eyedrops for chronic uveitis. The patient was a previous smoker. She is a full code. Review of Systems Narrative: 13 point review of systems otherwise unrevealing or stable. Patient is not had significant weight loss. 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 Meds Allergies and Home Medications Allergies Allergy/AdvReac Type Severity Reaction Status Date / Time No Known Allergies Allergy Verified 09/28/24 15:30 Home Medications ?Medication ?Instructions ?Recorded ?Confirmed ?Type codeine 10 mg-guaifenesin 100 mg/5 5 ml PO Q4H PRN 08/24/24 09/28/24 History mL oral liquid dorzolamide 2 % eye drops 1 drp ophthalmic (eye) BID 08/24/24 09/28/24 History latanoprost 0.005 % eye drops 1 drp ophthalmic (eye) QPM 08/24/24 09/28/24 History levonorgestrel 14 mcg/24 hr (up to 1 device intrauterine ONCE 08/24/24 09/28/24 History 3 yrs) 13.5 mg intrauterine device prednisolone acetate 1 % eye 1 drp ophthalmic (eye) BID 08/24/24 09/29/24 History drops,suspension albuterol 90 mcg/actuation aerosol 180 mcg inhalation Q4H PRN 09/28/24 09/28/24 History inhaler brimonidine 0.2 %-timolol 0.5 % 1 drp ophthalmic (eye) BID 09/28/24 09/29/24 History eye drops (Combigan) carboplatin IV 09/28/24 History celecoxib 200 mg capsule (Celebrex) 200 mg PO BID 09/28/24 09/28/24 History dexamethasone 4 mg tablet 4 mg PO DAILY 09/28/24 09/28/24 History duloxetine 30 mg capsule,delayed 30 mg PO DAILY 09/28/24 09/28/24 History release (Cymbalta) durvalumab IV 09/28/24 History fentanyl 12 mcg/hr transdermal 1 patch transdermal Q72H 09/28/24 09/28/24 History patch folic acid 1 mg tablet 1 mg PO DAILY 09/28/24 09/28/24 History oxycodone 5 mg tablet 10 mg PO Q4H 09/28/24 09/28/24 History pemetrexed IV 09/28/24 History prochlorperazine maleate 10 mg 10 mg PO Q6H PRN 09/28/24 09/28/24 History tablet (Compazine) tremelimumab-actl IV 09/28/24 History Exam Narrative Exam Narrative: General: Patient is comfortable except for irritating dry cough during conversation. She is in no acute distress. She is alert and oriented x 3. She is thin but normal body build. HEENT: Normocephalic, eyes with pupils equal and reactive to light symmetrically, extraocular movement intact and sclera anicteric oropharynx with moist Koza and good dentition. Neck: Supple without JVD. Back: Normal posture without CVA tenderness. Lungs: Decreased or no air movement over most of the right hemithorax with dullness to percussion, left hemothorax with vesicular breath sounds and clear to auscultation without focalizing rales or rhonchi. No expiratory wheeze. Breast: Exam deferred. Heart: Regular rate and rhythm with no murmurs gallops appreciated. Abdomen: Scaphoid contour, soft and nontender to palpation without palpable hepatosplenomegaly. Bowel sounds positive all quadrants. No guarding or rebound. Genitalia/rectal: Exam deferred. Extremities without gross clubbing, cyanosis or pitting edema. Peripheral pulses intact. Skin: Dark brown color, warm and dry. Neuro: Cranial nerve II to XII gross intact, no focalized motor deficits. No tremors. Psych: Normal affect and mood. No abnormal thought processes. Remote and recent memory intact. Results Imaging Imaging Studies: Date of Exam: 09/28/24 EXAM: CT CHEST PE CTA CLINICAL HISTORY: Right lung mass. TECHNIQUE: Imaging Protocol: Axial CT angiography was performed with multi- slice acquisition and multi-planar and/or 3D reconstructions. Lung Computer Aided Detection (CAD) was utilized. CONTRAST MATERIAL: Intravenous: Omnipaque 350 contrast volume:60 mL COMPARISON: CT CT CHEST W from 08/02/2024 FINDINGS: Tracheobronchial tree: The patient has a known right central/hilar mass consistent with lung carcinoma. Since the prior examination, there has been complete obstruction of the right mainstem bronchus, the right main pulmonary artery in the right upper lobe pulmonary vein. There is now prominence of the azygos vein. There is also now postobstructive opacities in the right lower lobe. There is now complete opacification/consolidation of the right middle lobe and near complete consolidation of the right upper lobe. There is elevation of the right hemidiaphragm and a rightward shift of the midline structures. Pulmonary parenchyma: There has been interval increase in size of the nodule in the anterior aspect of the left upper lobe. It now measures 9 mm compared to 6 mm on the prior examination. Pulmonary Arteries: There is no evidence of a pulmonary embolism in the left lung. The right pulmonary arteries and veins do not enhance secondary to central obstruction by the central neoplasm. Mediastinum and Fern: No evidence of left hilar adenopathy. The esophagus is grossly unremarkable. Visualized thyroid gland: Unremarkable. Pleura: There is a right pleural effusion. No left pleural effusion. No pneumothorax. Heart: The heart is not dilated. No coronary artery calcifications are seen. No pericardial effusion. Aorta: Thoracic aorta non-dilated. No evidence of dissection. Upper abdomen: Unremarkable. Soft tissues: Unremarkable. Bones: Within normal limits for the patient's age. IMPRESSION: 1. Interval progression of disease involving the right central lung carcinoma. There has been interval complete obstruction of the right main pulmonary artery, the right mainstem bronchus and the right upper lobe pulmonary veins. 2. The right pulmonary arteries do not opacify secondary to the obstruction. There is no evidence of a left-sided pulmonary embolism. 3. Postobstructive consolidation is seen in the right upper, middle and lower lobes. 4. Interval development of a small right pleural effusion. 5. Overall, significant progression of disease in the chest since 08/02/2024. Date of Exam: 09/28/24 EXAM: XR CHEST 2V PA LATERAL CLINICAL HISTORY: Right lung mass, Right shoulder pain TECHNIQUE: 2D digital imaging was performed of the chest. Two images were obtained. PA and lateral views were obtained. COMPARISON: CR,XR XR CHEST 2V PA LATERAL from 08/02/[address] CHEST W from 08/02/2024 FINDINGS: MEDIASTINUM: Normal. HEART: Normal. PULMONARY VASCULATURE: Normal. LUNGS: The left lung remains clear and hyperlucent. In the right lung, there is now elevation of the right hemidiaphragm suggesting volume loss. There is a central opacity again seen consistent with the patient's known carcinoma. There is a most likely postobstructive atelectasis. PLEURAL SPACE: No pleural effusion or pneumothorax. BONE:Within normal limits for the patient's age. There is a right convex curvature of the thoracolumbar spine again seen. OTHER FINDINGS:Normal. IMPRESSION: 1. Interval right hemithorax volume loss with elevation of the right hemidiaphragm and a rightward shift of the midline. 2. The patient has a known central right hilar lung carcinoma. There is now opacification involving the inferior half of the lung likely reflect reflecting postobstructive atelectasis or possible pneumonia. 3. The left lung remains clear Date of Exam: 09/28/24 EXAM: CT PELVIC WO CLINICAL HISTORY: Left hip pain, hx CA. TECHNIQUE: Imaging Protocol: Axial computed tomography images with coronal and sagittal reformatted images were created and reviewed. COMPARISON: CT CT ABDOMEN PELVIS W from 08/02/2024 FINDINGS: Bones: No fracture or dislocation. Bony alignment is satisfactory. No cellulitic or osteomyelitic changes are identified. There is no evidence of joint space narrowing or cystic degeneration seen. There is a lytic lesion involving the medial aspect of the proximal femoral diaphysis and the lesser trochanter. No other lytic or sclerotic lesions are seen. Soft Tissues: There is an IUD in place. There is a 4 cm right and a 2.6 cm left adnexal cyst. These are likely ovarian physiologic in origin. There is a fluid collection seen on the right which appears to lie in the right aspect of the vagina and extend into the right labia majora. This likely reflects a benign lesion such as a Bartholin's gland cyst. No inflammatory changes are seen around the cyst. IMPRESSION: Lytic lesion involving the medial aspect of the proximal left femur suspicious for metastatic disease or primary osseous neoplasm. Infection cannot be excluded. Labs 09/29/24 06:28 09/29/24 06:28 Labs: Laboratory Results - last 24 hr 09/28/24 09/28/24 15:48 18:47 WBC 20.93 H RBC 4.17 Hgb 14.1 Hct 41.3 MCV 99 H MCH 33.8 H MCHC 34.1 RDW 13.5 Plt Count 300 MPV 8.9 Immature Gran % 0.6 Neutrophils % 91.7 Lymphocytes % 5.1 Monocytes % 1.3 Eosinophils % 1.1 Basophils % 0.2 Nucleated RBC % 0.0 Absolute Neutrophils 19.19 H Absolute Lymphocytes 1.07 L Absolute Monocytes 0.27 Absolute Eosinophils 0.23 Absolute Basophils 0.04 Sodium 134 L Potassium 3.9 Chloride 98 Carbon Dioxide 25.8 Anion Gap 10.2 BUN 16 Creatinine 0.7 Est GFR (CKD-EPI 2020) 119.24 Glucose 127 H Calcium 10.8 H Magnesium 1.8 Total Bilirubin 1.0 AST 67 H ALT 75 H Alkaline Phosphatase 80 Troponin I 6 Total Protein 8.1 Albumin 4.4 Last Vital Signs Temp 36.8 C 09/28/24 15:32 Pulse 97 H 09/28/24 18:46 Resp 23 09/28/24 18:46 BP 98/63 L 09/28/24 18:46 Pulse Ox 97 09/28/24 18:46 PAWSS Have you Been Recently Intoxicated or Drunk Within the Last 30 days?: No Have you Ever Experienced Previous Episodes of Alcohol Withdrawal?: No Have you ever Experienced Withdrawal Seizures?: No Have you ever Experienced Delirium Tremens(DT)s?: No Have you ever undergone Alcohol Rehabilitation Treatment (i.e, inpt ot outpatient treatment programs)?: No Have you ever Experienced Blackouts?: No Have you ever Combined Alcohol with other Downers within the last 90 days?: No Have you ever Combined Alcohol with any other Substance of Abuse during the last 90 days?: No Positive Blood Alcohol level on Presentation? [PCS.BAL]: No Evidence of Increased Autonomic Activity (i.e. HR>120, tremor, sweating, agitation, nausea)?: No Result: 0 Time Spent Time spent with Patient: >75 minutes Time was spent: preparing to see the patient(eg.review tests), obtaining and/or reviewing separately otained hiistory, ordering medications,tests, procedures, referring, communicating with other health skin care specialist, indepentently interpreting results, counseling the patient and care coordination
[2024-09-28 21:51] LABS: Troponin I 5 ng/L (<or=51)
[2024-09-28 21:54] LABS: Procalcitonin 6.75 ng/mL
[2024-09-28 22:20] LABS: COVID-19 PCR Negative (Negative); Influenza A PCR Negative (Negative); Influenza B PCR Negative (Negative); RSV PCR Negative (Negative)
--- NOTE | 2024-09-28 22:38 | ED.PROG_ITS ---
Date of service: 09/28/24 Time of Service: 22:44 Medical Decision Making Quality:SDOH Health Related Social Needs: Health related social needs problems related to housin g/economic circumstances (Z59.89) Discharge Plan Disposition Patient Disposition: Admit to [facility] Condition: Stable Discharge Details Clinical Impression: Intractable pain, Metastatic lung cancer (metastasis from lung to other site) Admit Date/Time: 09/28/24 21:36 Primary Care Provider: Tania Lezama ED Provider: Joana Melgar Home Meds and New Rx's Prescriptions: No Action codeine-guaifenesin 10-100 mg/5 mL liquid 5 ml PO Q4H PRN Rx Instructions: Can take 5-10 mLs for cough dorzolamide 2 % drops 1 drp ophthalmic (eye) BID Rx Instructions: Place in both eyes prednisolone acetate 1 % drops,suspension 1 drp ophthalmic (eye) TID levonorgestrel 14 mcg/24 hr (3 yrs) 13.5 mg intrauterine device 1 device intrauterine ONCE Rx Instructions: as a single dose latanoprost 0.005 % drops 1 drp ophthalmic (eye) QPM Rx Instructions: BOTH eyes pemetrexed IV durvalumab IV carboplatin IV tremelimumab-actl IV albuterol 90 mcg/actuation aerosol 180 mcg inhalation Q4H PRN brimonidine-timolol [Combigan] 0.2-0.5 % drops 1 drp ophthalmic (eye) TID celecoxib [Celebrex] 200 mg capsule 200 mg PO BID dexamethasone 4 mg tablet 4 mg PO DAILY duloxetine [Cymbalta] 30 mg capsule,delayed release(DR/EC) 30 mg PO DAILY fentanyl 12 mcg/hr patch 72 hour 1 patch transdermal Q72H folic acid 1 mg tablet 1 mg PO DAILY oxycodone 5 mg tablet 10 mg PO Q4H Rx Instructions: Take 2-3 tabs (10 mg - 15 mg) Q4H PRN- cancer associated pain prochlorperazine maleate [Compazine] 10 mg tablet 10 mg PO Q6H PRN POCUS Exam (ED) Limited Cardiac Exam DATE OF EXAM: 09/28/24 TIME OF EXAM: 22:44 PROVIDER THAT PERFORMED THE STUDY: Christopher Acevedo IS THIS A REPEAT EXAM DURING THIS ENCOUNTER: no REASON FOR EXAM: Chest pain VISUALIZED STRUCTURES: Four Chambers, Left ventricle and LVOT VIEW OBTAINED: Apical 4-Chamber, Parasternal long-axis and Subxiphoid PERTINENT FINDINGS/IMPRESSION: No pericardial effusion and No RV dilation DIFFERENTIAL DIAGNOSES: Aortic outflow track less than 4 cm, good squeeze, RV less than LV, no significant pericardial effusion. Pleural effusion. Exam complete
[2024-09-28 22:40] LABS: Source Nasopharynx
[2024-09-29] MEDS: fentaNYL 12 MCG PATCH TD (00:18)
[2024-09-29] MEDS: Patch Removal 1 EACH TP (00:20)
[2024-09-29] MEDS: oxyCODONE 5 MG TAB 10 MG PO ×3 (00:23→13:44)
[2024-09-29] MEDS: Normal Saline Flush 10 ML SYR IVP ×4 (00:23→15:15)
--- NOTE | 2024-09-29 01:05 | W.PC.ACHO ---
Registration Status: Primary Language: Preferred Language: ED Information & Data Chief Complaint GenMedical 09/28/24 15:44 Triage Note severe pain in left hip and 09/28/24 15:25 right shoulder, no relief from pain meds. pt has RUL mass and coretta to the hip. started chemo on Tuesday, right breast bx september 26. 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 Most Recent Vital Signs Temperature 36.9 C 09/28/24 23:43 Temperature Source Tympanic 09/28/24 23:43 Pulse 106 H 09/28/24 23:43 Pulse Rhythm Regular 09/28/24 22:52 Pulse 101 H 09/28/24 21:40 Respiratory Rate 20 09/28/24 23:43 Respiratory Effort Normal 09/28/24 22:52 Respiratory Depth Normal 09/28/24 22:52 Respiratory Pattern Normal 09/28/24 22:52 Blood Pressure 101/66 09/28/24 23:43 Blood Pressure Mean 62 09/28/24 22:01 Blood Pressure Position Sitting 09/28/24 15:32 Pulse Oximetry 97 09/28/24 23:43 Oxygen Delivery Method Room Air 09/28/24 23:43 Oxygen Flow Rate 0 09/28/24 23:43 Pain Level 8 09/29/24 00:23 Allergies No Known Allergies Allergy (Verified 09/28/24 15:30) Precautions Isolation Protective precaution 09/28/24 15:32 Active Medications Generic Name Dose Route Start Last Admin Trade Name Freq PRN Reason Stop Dose Admin Fentanyl 12 mcg 09/29/24 00:00 09/29/24 00:18 Fentanyl 12 Mcg Patch TD 12 mcg Q72H FELICIANO Administration Miscellaneous 1 each 09/29/24 00:00 09/29/24 00:20 Patch Removal TP 1 each Q72H FELICIANO Administration Oxycodone HCl 10 mg 09/29/24 00:10 09/29/24 00:23 Oxycodone 5 Mg Tab PO 10 mg Q4H PRN PRN Administration Breakthrough Pain Sodium Chloride 0 ml 09/28/24 20:00 09/29/24 00:23 Normal Saline Flush 10 Ml Syr IVP 10 ml BID FELICIANO Administration IV IV Catheter Type [Right Wrist] Saline Lock IV Catheter Gauge [Right Wrist 20 ] Diet Orders Category Date Time Status Regular/Normal [DIET] Nutrition 09/29/24 Breakfast Active Diagnostics 09/29/24 09/28/24 09/28/24 Range/Units 05:35 21:42 21:07 WBC Pending (4.4-10.8) 10^3/uL RBC Pending (3.93-5.22) 10^6/uL Hgb Pending (11.2-15.7) g/dL Hct Pending (36.0-46.0) % MCV Pending (80-95) fL MCH Pending (27.0-33.0) pg MCHC Pending (32.0-36.0) % RDW Pending (11.7-14.6) % Plt Count Pending (130-400) 10^3/uL MPV Pending (8.0-11.0) fL Immature Gran % % Neutrophils % % Lymphocytes % % Monocytes % % Eosinophils % % Basophils % % Nucleated RBC % (0.0-0.3) % Absolute Neutrophils (1.2-6.7) 10^3/uL Absolute Lymphocytes (1.2-3.4) 10^3/uL Absolute Monocytes (0.1-0.8) 10^3/uL Absolute Eosinophils (0.0-0.7) 10^3/uL Absolute Basophils (0.0-0.2) 10^3/uL VBG Lactate 0.9 (<or=2.0) mmol/L Sodium Pending (136-145) mmol/L Potassium Pending (3.5-5.1) mmol/L Chloride Pending (98-107) mmol/L Carbon Dioxide Pending (21.0-32.0) mmol/L Anion Gap Pending (3-11) mmol/L BUN Pending (7-18) mg/dL Creatinine Pending (0.55-1.02) mg/dL Est GFR (CKD-EPI 2020) Pending (mL/min/1.73m2) Glucose Pending (74-106) mg/dL Calcium Pending (8.5-10.1) mg/dL Magnesium Pending (1.8-2.4) mg/dL Total Bilirubin Pending (0.2-1.0) mg/dL AST Pending (15-37) U/L ALT Pending (14-59) U/L Alkaline Phosphatase Pending (46-116) U/L Troponin I 5 (<or=51) ng/L Total Protein Pending (6.4-8.2) g/dL Albumin Pending (3.4-5.0) g/dL Procalcitonin 6.75 ng/mL COVID-19 Source Nasopharynx SARS-CoV-2 (PCR) Negative (Negative) Influenza Type A (PCR) Negative (Negative) Influenza Type B (PCR) Negative (Negative) RSV (PCR) Negative (Negative) 09/28/24 09/28/24 Range/Units 18:47 15:48 WBC 20.93 H (4.4-10.8) 10^3/uL RBC 4.17 (3.93-5.22) 10^6/uL Hgb 14.1 (11.2-15.7) g/dL Hct 41.3 (36.0-46.0) % MCV 99 H (80-95) fL MCH 33.8 H (27.0-33.0) pg MCHC 34.1 (32.0-36.0) % RDW 13.5 (11.7-14.6) % Plt Count 300 (130-400) 10^3/uL MPV 8.9 (8.0-11.0) fL Immature Gran % 0.6 % Neutrophils % 91.7 % Lymphocytes % 5.1 % Monocytes % 1.3 % Eosinophils % 1.1 % Basophils % 0.2 % Nucleated RBC % 0.0 (0.0-0.3) % Absolute Neutrophils 19.19 H (1.2-6.7) 10^3/uL Absolute Lymphocytes 1.07 L (1.2-3.4) 10^3/uL Absolute Monocytes 0.27 (0.1-0.8) 10^3/uL Absolute Eosinophils 0.23 (0.0-0.7) 10^3/uL Absolute Basophils 0.04 (0.0-0.2) 10^3/uL VBG Lactate (<or=2.0) mmol/L Sodium 134 L (136-145) mmol/L Potassium 3.9 (3.5-5.1) mmol/L Chloride 98 (98-107) mmol/L Carbon Dioxide 25.8 (21.0-32.0) mmol/L Anion Gap 10.2 (3-11) mmol/L BUN 16 (7-18) mg/dL Creatinine 0.7 (0.55-1.02) mg/dL Est GFR (CKD-EPI 2020) 119.24 (mL/min/1.73m2) Glucose 127 H (74-106) mg/dL Calcium 10.8 H (8.5-10.1) mg/dL Magnesium 1.8 (1.8-2.4) mg/dL Total Bilirubin 1.0 (0.2-1.0) mg/dL AST 67 H (15-37) U/L ALT 75 H (14-59) U/L Alkaline Phosphatase 80 (46-116) U/L Troponin I 6 (<or=51) ng/L Total Protein 8.1 (6.4-8.2) g/dL Albumin 4.4 (3.4-5.0) g/dL Procalcitonin ng/mL COVID-19 Source SARS-CoV-2 (PCR) (Negative) Influenza Type A (PCR) (Negative) Influenza Type B (PCR) (Negative) RSV (PCR) (Negative) 09/28/24 21:18 Blood Culture - Pending Blood 09/28/24 21:07 Blood Culture - Pending Blood Intake and Output - 24 Hour Total 09/28/24 15:21 thru 09/28/24 17:35 Intake Total 500 Balance 500 Weight 51.256 kg Intake: IV 500 Falls Risk Assessment History of Falls No History 09/28/24 22:52 Contributing Factors No Factors 09/28/24 15:32 Ambulatory Aids Independent 09/28/24 15:32 Tubes/Lines W/no contributing factors 09/28/24 15:32 Gait Evaluation No gait disturbance 09/28/24 15:32 Cognition No cognitive impairment 09/28/24 15:32 Fall Total Score 0 09/28/24 22:52 Level of Risk Standard/Low Risk 09/28/24 22:52 Problems (Last Reviewed 09/28/24 @ 21:28 by Guillermo Gomes) Non-small cell carcinoma of lung, stage 4 (Chronic) Leukocytosis (leucocytosis) (Acute) Intractable pain (Acute) v v v v v v v v v Sending and/or Receiving Nurses: Please use comment section below to note any information pertinent to the patient hand-off not included above. Information / Comments: VSS, pain attempted to be managed with IV and PO pain medication. Report received from:
[2024-09-29] MEDS: HYDROmorphone 2 MG/ML SYR 1 MG IVP ×3 (02:48→15:15)
[2024-09-29] MEDS: guaiFENesin/CODEINE PHOSPHATE 10 ML CUP 5 ML PO ×3 (02:50→12:44)
[2024-09-29] MEDS: Acetaminophen 325 MG TAB PO (03:17)
[2024-09-29] MEDS: Benzonatate 200 MG CAP PO ×3 (03:18→13:44)
[2024-09-29 03:27] VITALS: BP 97/63; PULSE 107; RESP 20; TEMP 36.1; O2SAT 96
[2024-09-29 06:37] LABS: HCT 37.7 % (36.0-46.0); HGB 12.8 g/dL (11.2-15.7); MCH 33.5 pg (27.0-33.0); MCV 99 fL (80-95); MPV 8.8 fL (8.0-11.0); Platelet Count 236 10^3/uL (130-400); RBC 3.82 10^6/uL (3.93-5.22); RDW 13.2 % (11.7-14.6); RDW-SD 48.4 fL; WBC 15.76 10^3/uL (4.4-10.8)
[2024-09-29 07:00] LABS: ALT 93 U/L (14-59); AST 88 U/L (15-37); Albumin 3.8 g/dL (3.4-5.0); Alkaline Phosphatase 72 U/L (46-116); Anion Gap 6.8 mmol/L (3-11); BUN 12 mg/dL (7-18); Bilirubin, Total 0.9 mg/dL (0.2-1.0); CO2 28.2 mmol/L (21.0-32.0); CREATININE 0.7 mg/dL (0.55-1.02); Calcium 10.1 mg/dL (8.5-10.1); Chloride 100 mmol/L (98-107); Estimated GFR 119.24 (mL/min/1.73m2); Glucose 93 mg/dL (74-106); Magnesium 1.7 mg/dL (1.8-2.4); Potassium 3.8 mmol/L (3.5-5.1); Sodium 135 mmol/L (136-145)
[2024-09-29 07:34] VITALS: BP 103/64; PULSE 110; RESP 15; TEMP 36.9; O2SAT 96
[2024-09-29] MEDS: DULoxetine 30 MG CAP PO (07:55)
[2024-09-29] MEDS: Celecoxib 200 MG CAP PO (07:55)
[2024-09-29] MEDS: Dexamethasone 4 MG TAB PO (07:55)
[2024-09-29] MEDS: Enoxaparin 40 MG/0.4 ML SYR SC (07:56)
[2024-09-29] MEDS: Folic Acid 1 MG TAB PO (07:56)
--- NOTE | 2024-09-29 08:52 | PDOC.CMIN ---
Date of service: 09/29/24 Time of Service: 08:52 Care Management Initial Assmt Functional Status/Living Situation Patient Presentation: Started Chemo on Tuesday. Instrumental Activities of Daily Living (ADLs): Independent Medications Medication Management: No Issues/Barriers identified Advance Directives Advance Directives: Do you have an Advance Directive: N 09/28/24 15:32 AD On File at [facility]: N 08/02/24 19:18 Date Asked 09/28/24 09/28/24 15:32 AD Date Reviewed COLST On File at [facility] No 09/28/24 15:32 COLST Date Scanned Code Status Resuscitation Status Full Code Portal Pt does not currently have a portal and education provided: Yes Insurance Coverage/Financial Issues Insurance: [facility] [id number] Care Team Visit Care Team Role Provider Type Christopher Escobar MD [facility] STAFF PHYSICIAN Tania Lezama Primary Care Provider NON-[facility] STAFF PHYSICIAN Joana Melgar, INSURANCE INSPECTOR Emergency Provider NURSE PRACTITIONER Guillermo Gomes Admit Provider NON-[facility] STAFF PHYSICIAN Attending Provider Discharge Potential Discharge Needs: Consult Consult Services Needed: Palliative, PCP F/U Appt and Other (Oncology) Anticipated Barriers to Discharge: None Identified Patient/Family Education Needs: Review discharge instructions, discuss Ask Me Three Transportation: Private vehicle Social Determinants of Health Screening Will the Patient Participate in the Screening?: Declined to provide Do you worry about having a steady place to live?: choose not to answer 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
[2024-09-29] MEDS: Milk of Magnesia 30 ML CUP PO (09:26)
[2024-09-29 11:18] VITALS: BP 107/64; PULSE 115; RESP 15; TEMP 35.9; O2SAT 97
[2024-09-29] MEDS: MAGNESIUM SULFATE 1 GM/100 ML BAG IV_INF (12:02)
--- NOTE | 2024-09-29 14:29 | PT.INIE ---
PT Notes Visit Reasons: Intractable pain with stage IV non-small cell lung Inpatient Physical Therapy Evaluation Date: 09/29/24 Referring Doctor: Dr. Escobar PT Orders: PT CONSULT: safety consult for d/c Patient Profile/Admitting Diagnosis: L hip pain, leukocytosis PMHX: Non-small cell lung carcinoma stage 4 Social History/Home Situation: Lives in [place], [place] with her parents and boyfriend, manages stairs regularly, no AD use Subjective: Pt presented to the ED with severe pain in her left hip in which she could hardly walk. She was found to have a mass in that area. She just started chemotherapy last week for her cancer diagnosis. Objective: General Observation: No acute distress Mental Status: A+Ox4 Pain: L hip when weight bearing and moving, pain meds are helping Vital Signs: monitored by nursing Strength: Right Lower Extremity: Grossly 4+/5 Left Lower Extremity: Grossly 3+/5 in L hip limited by pain, 5/5 with ankle DF and knee extension Sensation: Full Bed Mobility/Transfers: supine to sit - independent sit to supine - independent sit to stand - SBA stand to sit - SBA Gait: ambulates 150 ft w/o AD and SBA - small steps and slow gait speed observed ascends/descends 5 stairs w/o issue and performing step to gait cycle both up and down the stairs Balance: Static Sitting: Good Dynamic Sitting: Good Static Standing: Good Dynamic Standing: Good Special Tests: Mobility Limitations Standardized Measure [facility] AM-PAC 6 clicks Basic Mobility Inpatient Short Form: Raw Score: 20 CMS Score: 35.83% Informed Consent/Education: Patient instructed in purpose of PT consult and plan of care. Assessment: Pt is functionally doing well as her pain is now managed. She still is having some pain with weight bearing and moving her left leg but this is now tolerable. She was able to ambulate without any form of AD and ascend/descend stairs today without issue. We discussed different strategies to help manage her pain during these functional activities. Crutches may be beneficial in the future if her pain gets worse again. She no longer requires PT services. Her functional status will not need to be factored into her d/c plans. Patient is assessed as a [x] Moderate 71177 complexity based on the following: History: Moderate Examination: Moderate Presentation: Moderate Decision Making: Moderate Goals: N/A - patient no longer requires PT Plan of Care/Treatment Plan: 1-2x/day, 7 days/week x 1 week. Plan of care has been reviewed with the [facility] [employer] providing the service under Physical Therapy direction. Initiate Physical Therapy intervention for strengthening, bed mobility, transfers, gait, stairs, balance training, use of assistive device. DISCHARGE RECOMMENDATIONS: Home when medically cleared without any further services TREATMENT CODE/TIME: Mod Eval x1 (60509) - 20 minutes
[2024-09-29 16:00] VITALS: BP 105/70; PULSE 106; RESP 16; TEMP 35.9; O2SAT 95
--- NOTE | 2024-09-29 16:06 | PDOC.CMDIS ---
Date of service: 09/29/24 Time of Service: 16:06 LACE Index Scoring Tool Questions: Length of Stay (in days): 1 Was the patient admitted via the E.D.?: Yes Comorbidities: Metastatic Solid Tumor E.D. Visits: 1 Answers: Total Score: 10 Risk of Readmission: High Risk Care Management Discharge Plan Reason for Hospitalization: Intractable Pain, Metastatic Lung Cancer Discharge Plan: Brenda is discharged home via private vehicle with family. She will follow up with primary care, oncology and her discharge plan of care as instructed. No new services are ordered. Brenda plans to follow up with RN Care Management through [facility] Oncology for community resources (gas/food gift cards) and support navigating the healthcare system. Patient/Family Education Needs: Review discharge instructions, limitations, medications and plan to follow up after discharge. Discuss ask me three. SDOH Health Related Social Needs: Health related social needs problems related to housing/economic circumstances (Z59.89)
--- NOTE | 2024-09-29 16:15 | DSE_ITS ---
Date of service: 09/29/24 Time of Service: 16:15 DS: Diagnosis Discharge Diagnosis (1) Intractable pain: Status: Acute (2) Leukocytosis (leucocytosis): Status: Acute (3) Non-small cell carcinoma of lung, stage 4: Status: Chronic Discharge Plan Disposition Patient Disposition: Home Condition: Good Discharge Details Reason For Visit: Intractable pain with stage IV non-small cell lung Admit Date/Time: 09/28/24 21:36 Admit Provider: Guillermo Gomes Attending Provider: Guillermo Gomes Primary Care Provider: Tania Lezama [facility] Course Hospital Course: 29 yo F with non-small cell lung cancer metastatic to her left hip, who recently started chemo and immune therapy, who presented with intractable pain in her left hip and leg associated with persistent cough. She had a leukocytosis to 20.9 but no signs of focal infection. Growth of the obstructing lung mass was seen on CT as was a lytic lesion in her proximal left femur. The case was reviewed with [facility] oncology in the emergency room and she was initially accepted for transfer for urgent radiation pending bed availablity. She was treated with dexamethasone 4mg orally and the addition of IV hydromorphone 1mg as needed. Her WBC decreased to 15.7, no antibiotics were given, and there was no sign of focal infection. Her Mg was 1.7 and was supplemented. By the next morning she was feeling significantly better. She was able to move her hips and walk well with PT without severe pain. After a discussion with her mom and boyfriend and reviewing her options, she decided to go home and follow up as an outpatient with radiation oncology and oncology. She already had dexamethasone given to her by a consult at [facility] fpr prn use and she was instructed to take these for 3 more days. She was given #30 hydromorphone 2mg tablets to take for breakthrough pain. Benzonatate cough suppressant also helped, and this was prescribed. She wiil follow up as planned with the cancer center. Home Meds and New Rx's Prescriptions: New benzonatate 200 mg Capsule 200 mg PO TID Qty: 30 1RF hydromorphone 2 mg tablet 2 mg PO Q6H Qty: 30 0RF Continued codeine-guaifenesin 10-100 mg/5 mL liquid 5 ml PO Q4H PRN Rx Instructions: Can take 5-10 mLs for cough dorzolamide 2 % drops 1 drp ophthalmic (eye) BID Rx Instructions: Place in both eyes prednisolone acetate 1 % drops,suspension 1 drp ophthalmic (eye) BID levonorgestrel 14 mcg/24 hr (3 yrs) 13.5 mg intrauterine device 1 device intrauterine ONCE Rx Instructions: as a single dose latanoprost 0.005 % drops 1 drp ophthalmic (eye) QPM Rx Instructions: BOTH eyes pemetrexed IV durvalumab IV carboplatin IV tremelimumab-actl IV albuterol 90 mcg/actuation aerosol 180 mcg inhalation Q4H PRN brimonidine-timolol [Combigan] 0.2-0.5 % drops 1 drp ophthalmic (eye) BID celecoxib [Celebrex] 200 mg capsule 200 mg PO BID dexamethasone 4 mg tablet 4 mg PO DAILY duloxetine [Cymbalta] 30 mg capsule,delayed release(DR/EC) 30 mg PO DAILY fentanyl 12 mcg/hr patch 72 hour 1 patch transdermal Q72H folic acid 1 mg tablet 1 mg PO DAILY oxycodone 5 mg tablet 10 mg PO Q4H Rx Instructions: Take 2-3 tabs (10 mg - 15 mg) Q4H PRN- cancer associated pain prochlorperazine maleate [Compazine] 10 mg tablet 10 mg PO Q6H PRN Discharge Instructions Additional Instructions: you can take the additional pain medication and cough suppressant as needed take dexamethasone each morning for 3 more days follow up with your oncology team this coming week. Referrals: Venkatesh Monzon [ [facility] STAFF PHYSICIAN] - Activity:: Activity as Tolerated Equipment/Supplies:: No Equipment Needed Diet:: As Tolerated Discharge Orders Discharge Orders: Discharge Order (Routine); Ordered 09/29/24 Ordered By: Christopher Escobar DS: Summary Time Spent with Patient providing and/or coordinating discharge services: Greater than 30 minutes Status at Discharge Functional status at discharge: independent ambulation Overall status at discharge: patient is back to baseline Mental Status: mental status grossly normal Speech and Movement: speech and movement normal Mood: congruent mood Affect: normal affect Quality:SDOH Health Related Social Needs: Health related social needs problems related to housin g/economic circumstances (Z59.89) Exam Narrative Exam Narrative: General: She is alert and oriented, NAD, sitting up in bed. Lungs: Decreased air movement over most of the right hemithorax, otherwise clear, no rales/wheeze Heart: Regular rate and rhythm with no murmurs gallops appreciated. Abdomen: Soft, NT/ND Extremities without gross clubbing, cyanosis or pitting edema. int/ext left hip with minimal pain Psych: Normal affect and mood. No abnormal thought processes. Psych Mental Status: mental status grossly normal Speech and Movement: speech and movement normal Mood: congruent mood Affect: normal affect DS: Data Vitals/I&O Vitals and I&O: Vital Signs Temperature 35.9 C L 09/29/24 16:00 Temperature Source Temporal Artery Scan 09/29/24 16:00 Pulse 106 H 09/29/24 16:00 Pulse Rhythm Regular 09/28/24 22:52 Pulse 101 H 09/28/24 21:40 Respiratory Rate 16 09/29/24 16:00 Respiratory Effort Normal 09/28/24 22:52 Respiratory Depth Normal 09/28/24 22:52 Respiratory Pattern Normal 09/28/24 22:52 Blood Pressure 105/70 09/29/24 16:00 Blood Pressure Mean 62 09/28/24 22:01 Blood Pressure Position Sitting 09/28/24 15:32 Pulse Oximetry 95 09/29/24 16:00 Oxygen Delivery Method Room Air 09/29/24 16:00 Oxygen Flow Rate 0 09/29/24 16:00 Pain Level 0 09/29/24 16:00 Intake & Output 09/28/24 09/29/24 09/29/24 23:59 11:59 23:59 Intake Total 500 / 500 100 / 100 Balance 500 / 500 100 / 100 Weight 51.256 kg 56.4 kg Intake: IV 500 / 500 100 / 100 Other: Comment pT reports she has voided 1 hour ago, independently. Data Completed and Pending Labs on day of discharge: Labs from last 24 hours 09/29/24 09/28/24 09/28/24 06:28 21:42 21:07 WBC 15.76 H RBC 3.82 L Hgb 12.8 Hct 37.7 MCV 99 H MCH 33.5 H MCHC 34.0 RDW 13.2 Plt Count 236 MPV 8.8 VBG Lactate 0.9 Sodium 135 L Potassium 3.8 Chloride 100 Carbon Dioxide 28.2 Anion Gap 6.8 BUN 12 Creatinine 0.7 Est GFR (CKD-EPI 2020) 119.24 Glucose 93 Calcium 10.1 Magnesium 1.7 L Total Bilirubin 0.9 AST 88 H ALT 93 H Alkaline Phosphatase 72 Troponin I 5 Total Protein 7.0 Albumin 3.8 Procalcitonin 6.75 COVID-19 Source Nasopharynx SARS-CoV-2 (PCR) Negative Influenza Type A (PCR) Negative Influenza Type B (PCR) Negative RSV (PCR) Negative 09/28/24 09/28/24 18:47 15:48 WBC RBC Hgb Hct MCV MCH MCHC RDW Plt Count MPV VBG Lactate Sodium 134 L Potassium 3.9 Chloride 98 Carbon Dioxide 25.8 Anion Gap 10.2 BUN 16 Creatinine 0.7 Est GFR (CKD-EPI 2020) 119.24 Glucose 127 H Calcium 10.8 H Magnesium 1.8 Total Bilirubin 1.0 AST 67 H ALT 75 H Alkaline Phosphatase 80 Troponin I 6 Total Protein 8.1 Albumin 4.4 Procalcitonin COVID-19 Source SARS-CoV-2 (PCR) Influenza Type A (PCR) Influenza Type B (PCR) RSV (PCR) 09/28/24 21:18 Blood Blood Culture - Pending 09/28/24 21:07 Blood Blood Culture - Pending Preliminary micro results at discharge 09/28/24 21:18 Blood Culture - Pending Blood 09/28/24 21:07 Blood Culture - Pending Blood 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 Time Spent with Patient Time Spent with Patient: 45-69 minutes Time was spent: preparing to see the patient(eg.review tests), obtaining and/or reviewing separately otained hiistory, ordering medications,tests, procedures, referring, communicating with other health post anesthesia care unit nurse, indepentently interpreting results, counseling the patient, care coordination and other (discussing case with patient and family)
== END 2024-09-29 16:55 | disposition home or self-care (01) | DRG 948 ==
LOC: ER 22:08 → MS 22:43
PROVIDERS: Admitting Provider Family Medicine; Emergency Provider Registered Nurse Emergency; PCP Nurse Practitioner Adult Health; Responsible Provider Family Medicine; Visit Provider Family Medicine
DX: G89.3 Neoplasm related pain (acute) (chronic) (principal); C34.01 Malignant neoplasm of right main bronchus; C79.51 Secondary malignant neoplasm of bone; D72.829 Elevated white blood cell count, unspecified; Z79.899 Other long term (current) drug therapy; H20.13 Chronic iridocyclitis, bilateral; Z87.891 Personal history of nicotine dependence; R05.8 Other specified cough
CPT/HCPCS: 00123; 36415; 71275; 80053; 84145; 85027; 87040; 87637; 93005; 93308; 96361; 96374; 96376; 97162; 99285; J1650; 71046; 72192; 83605; 83735; 84484; 85025; 93010; 99223; 99239; J1171; J3475; J3490; J8540

== ENCOUNTER 2024-10-11 07:51 | Emergency (ER) | payer OTHER, SELFPAY ==
[2024-10-11] VITALS (43 sets, daily range): BP systolic 98–126; BP diastolic 49–97; PULSE 99–123; RESP 15–38; TEMP 36.4; O2SAT 95–100
--- NOTE | 2024-10-11 08:30 | DI.RAD_ITS ---
Exam(s) XR CHEST 2V PA LATERAL EXAM: XR CHEST 2V PA LATERAL CLINICAL HISTORY: shortness of breath. TECHNIQUE: 2D digital imaging was performed. COMPARISON: CR XR CHEST 2V PA LATERAL from 09/28/2024 FINDINGS: 2 views: There is further progression of disease with almost complete opacification of the right hemithorax no w evident. Opposite-left lung is clear. Heart size is normal. IMPRESSION: Complete opacification of the right hemithorax. DATA REPOSITORY: RADIATION DOSE DELIVERED:
[2024-10-11 08:52] LABS: Abs Immature Grans 0.15 10^3/uL (0.0-0.06); Absolute Basophil Count 0.06 10^3/uL (0.0-0.2); Absolute Monocyte Count 0.76 10^3/uL (0.1-0.8); Absolute Neutrophil Count 13.79 10^3/uL (1.2-6.7); Basophils % 0.4 %; HCT 34.8 % (36.0-46.0); HGB 11.8 g/dL (11.2-15.7); Lymphocytes % 4.8 %; MCH 34.7 pg (27.0-33.0); MCHC 33.9 % (32.0-36.0); MCV 102 fL (80-95); MPV 9.3 fL (8.0-11.0); Monocytes % 4.9 %; Neutrophils % 88.9 %; Platelet Count 319 10^3/uL (130-400); RDW 16.3 % (11.7-14.6); RDW-SD 56.3 fL; WBC 15.51 10^3/uL (4.4-10.8)
[2024-10-11 08:53] LABS: Absolute Lymphocyte Count 0.74 10^3/uL (1.2-3.4)
[2024-10-11] MEDS: Dexamethasone 4 MG/ML VIAL IVP (08:53)
[2024-10-11] MEDS: HYDROmorphone 2 MG/ML SYR 1 MG IVP (08:53)
[2024-10-11] MEDS: diazePAM 10 MG/2 ML SYR 5 MG IVP ×2 (08:54→11:14)
--- NOTE | 2024-10-11 09:00 | DI.RAD_ITS ---
Exam(s) XR FEMUR LT EXAM: XR FEMUR LT CLINICAL HISTORY: lytic lesion, worsening pain. TECHNIQUE: 2D digital imaging was performed. COMPARISON: CR XR HIP LT AP LAT ONLY from 09/27/2024 FINDINGS: Two views-AP and lateral Compared to images of 09/27/2024 there is further lytic involvement of the entire lesser trochanter o f the left hip and contiguous lytic involvement of the subjacent medial cortex in the subtrochanteric region of the femur. There are no obvious fracture lines. IMPRESSION: Metastatic lytic lesion in the left hip and subtrochanteric region as described above. No obvious pa thologic fracture evident on plain films DATA REPOSITORY: RADIATION DOSE DELIVERED:
--- NOTE | 2024-10-11 09:00 | DI.RAD_ITS ---
Exam(s) XR PELVIS AP EXAM: XR PELVIS AP CLINICAL HISTORY: left lytic lesion. TECHNIQUE: 2D digital imaging was performed. COMPARISON: CR XR HIP LT AP LAT ONLY from 09/27/2024 FINDINGS: Single AP view of the pelvis-hips There is complete lytic involvement of the lesser trochanter of the left hip and subjacent medial cor samira of the subtrochanteric region. Similar to images of 09/27/2024 IMPRESSION: Lytic involvement of the lower intertrochanteric and subtrochanteric region of the left hip. Similar appearance to 09/27/2024. This is most probably metastatic given the lung cancer history here. DATA REPOSITORY: RADIATION DOSE DELIVERED:
[2024-10-11 09:09] LABS: ALT 159 U/L (14-59); AST 47 U/L (15-37); Alkaline Phosphatase 93 U/L (46-116); BUN 9 mg/dL (7-18); Bilirubin, Total 0.3 mg/dL (0.2-1.0); CREATININE 0.8 mg/dL (0.55-1.02); Calcium 10.8 mg/dL (8.5-10.1); Chloride 103 mmol/L (98-107); Estimated GFR 101.59 (mL/min/1.73m2); Glucose 123 mg/dL (74-106); Sodium 138 mmol/L (136-145)
--- NOTE | 2024-10-11 09:44 | DI.MRI_ITS ---
Exam(s) MR LOWER JOINT LT WO EXAM: MR LOWER JOINT LT WO CLINICAL HISTORY: worsening pain, lytic lesion, mass eval for fx TECHNIQUE: Multiplanar multisequence MRI of the hip was performed. COMPARISON: CR XR FEMUR LT from 10/11/2024 FINDINGS: MARROW: There is a prominent mass which is T2 bright and isointense to muscle on T1 weighted images, this replacing the lesser trochanter of the left hip and adjacent medial cortex of the subtrochanteri c region, this mass measuring approximately 6 cm craniocaudal by 3 cm maximum width. There is no T1 visible pathologic fracture line in the hip and subtrochanteric region nor in the proximal half of th e ipsilateral femur. This mass uplifts the ipsilateral ileo psoas tendon. There is reactive edema i n the surrounding musculature. EFFUSION: There is a slight amount of increased fluid in the ipsilateral hip joint. There is no larg e hip joint effusion. BURSAE: There is no evidence of trochanteric bursitis. HIP JOINT SPACE: No significant degenerative changes. LABRUM: There is no evidence of obvious labral tear nor evidence of paralabral cyst. TENDONS: No evidence of tendinitis nor tendon tears. ISCHIAL TUBEROSITY/HAMSTRING: There is no abnormal intraosseous signal in the ipsilateral ischial tub erosity nor tear of the common hamstrings tendon attachment site at this level. IMPRESSION: 1. Large lytic mass lesion replacing the lesser trochanter of the left hip and involving the subjacen t medial cortex of the subtrochanteric region. This mass measures approximately 6 cm craniocaudal by 3 cm wide and is causing a displacement of the ileo psoas tendon (which normally inserts upon the le sser trochanter). 2. There is no evidence of pathologic fracture in the hip. 3. There is reactive edema in the surrounding musculature. 4. There are no other lytic lesions seen in the bones of the pelvis. Report called to ER provider 10/11/2024 at 11:30 a.m. DATA REPOSITORY:
[2024-10-11] MEDS: MORPHine IR 15 MG TAB PO (11:15)
[2024-10-11] MEDS: fentaNYL 25 MCG PATCH TD (11:16)
--- NOTE | 2024-10-11 12:53 | NUR.NOTE ---
Nursing Note: 2 bags of belongs in zone B 4. Patient's prescriptions at the [facility] until confirming she will be staying
[2024-10-11] MEDS: Albuterol 2.5 MG/3 ML INH SOLN VIAL (14:33)
[2024-10-11] MEDS: Lidocaine 1% Multi-Dose 50 ML VIAL IJ (14:33)
--- NOTE | 2024-10-11 14:54 | ED.GENADUL_ITS ---
Discharge Plan Disposition Patient Disposition: Home Discharge Details Clinical Impression: Metastatic lung cancer (metastasis from lung to other site), Non-small cell carcinoma of lung, stage 4 Primary Care Provider: Tania Lezama ED Provider: Fiona Regalado Home Meds and New Rx's Prescriptions: New fentanyl 25 mcg/hr patch 72 hour 1 patch transdermal Q72H Qty: 5 0RF morphine 15 mg tablet 15 mg PO TID PRNQty: 42 0RF cyclobenzaprine 10 mg tablet 10 mg PO TID PRNQty: 10 0RF Continued dorzolamide 2 % drops 1 drp ophthalmic (eye) BID Rx Instructions: Place in both eyes prednisolone acetate 1 % drops,suspension 1 drp ophthalmic (eye) BID levonorgestrel 14 mcg/24 hr (3 yrs) 13.5 mg intrauterine device 1 device intrauterine ONCE Rx Instructions: as a single dose latanoprost 0.005 % drops 1 drp ophthalmic (eye) QPM Rx Instructions: BOTH eyes pemetrexed IV durvalumab IV carboplatin IV tremelimumab-actl IV albuterol 90 mcg/actuation aerosol 180 mcg inhalation Q4H PRN brimonidine-timolol [Combigan] 0.2-0.5 % drops 1 drp ophthalmic (eye) BID duloxetine [Cymbalta] 30 mg capsule,delayed release(DR/EC) 30 mg PO DAILY folic acid 1 mg tablet 1 mg PO DAILY prochlorperazine maleate [Compazine] 10 mg tablet 10 mg PO Q6H PRN hydromorphone 2 mg tablet 2 mg PO Q6H Qty: 30 0RF Discontinued codeine-guaifenesin 10-100 mg/5 mL liquid 5 ml PO Q4H PRN Rx Instructions: Can take 5-10 mLs for cough celecoxib [Celebrex] 200 mg capsule 200 mg PO BID dexamethasone 4 mg tablet 4 mg PO DAILY Patient Comments: Pt stopped a few days ago 10/11/24 fentanyl 12 mcg/hr patch 72 hour 1 patch transdermal Q72H oxycodone 5 mg tablet 10 mg PO Q4H Patient Comments: Took last one this morning- no more refills 10/11/24 Rx Instructions: Take 2-3 tabs (10 mg - 15 mg) Q4H PRN- cancer associated pain Discharge Instructions Additional Instructions: Take either the Dilaudid or the morphine 3 times daily Do not take them at the same time The Flexeril 3 times daily as needed, this may make you drowsy in conjunction with the opiates As you know opiate medications can be very addictive and do not operate a vehicle while taking these medications or combine with alcohol Please follow-up with your oncologist at your scheduled appointment you also have an appointment with palliative care on October 29 at 9 AM, this is very important this is affiliated with [facility] Should you have worsening symptoms fever, chills, or increased work of breathing, please return to the emergency department Use the albuterol 2 puffs every 4 hours while awake with a spacer Discharge Data Discharge Date/Time-TO BE ENTERED AT DEPARTURE: 10/11/24 15:20 HPI General Date/Time Provider Initiated Documentation: 10/11/24 07:53 . 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 Transferred to [facility] for management due to extensive disease, pain, and hemoptysis. Scheduled with radiation oncology, orthopedics, and palliative care. Has yet to start radiation but received chemotherapy, last on 09/24/2024. Missed palliative care appointment, wishes to reschedule for pain management. Presents with chest tightness, worsening shortness of breath, and worsening left hip pain, significantly impairing mobility. Reports scant blood when coughing. Taking fentanyl patch, Dilaudid 2 m g every 6 hours, and oxycodone 10 mg every 4 hours for pain, still reports excruciating discomfort. Related Data Home Medications ?Medication ?Instructions ?Recorded ?Confirmed dorzolamide 2 % eye drops 1 drp ophthalmic (eye) BID 08/24/24 10/11/24 latanoprost 0.005 % eye drops 1 drp ophthalmic (eye) QPM 08/24/24 10/11/24 levonorgestrel 14 mcg/24 hr (up to 1 device intrauterine ONCE 08/24/24 10/11/24 3 yrs) 13.5 mg intrauterine device prednisolone acetate 1 % eye 1 drp ophthalmic (eye) BID 08/24/24 10/11/24 drops,suspension albuterol 90 mcg/actuation aerosol 180 mcg inhalation Q4H PRN 09/28/24 10/11/24 inhaler brimonidine 0.2 %-timolol 0.5 % 1 drp ophthalmic (eye) BID 09/28/24 10/11/24 eye drops (Combigan) carboplatin IV 09/28/24 duloxetine 30 mg capsule,delayed 30 mg PO DAILY 09/28/24 10/11/24 release (Cymbalta) durvalumab IV 09/28/24 folic acid 1 mg tablet 1 mg PO DAILY 09/28/24 10/11/24 pemetrexed IV 09/28/24 prochlorperazine maleate 10 mg 10 mg PO Q6H PRN 09/28/24 10/11/24 tablet (Compazine) tremelimumab-actl IV 09/28/24 hydromorphone 2 mg tablet 2 mg PO Q6H #30 tabs 09/29/24 10/11/24 cyclobenzaprine 10 mg tablet 10 mg PO TID PRN #10 tabs 10/11/24 fentanyl 25 mcg/hr transdermal 1 patch transdermal Q72H #5 ea 10/11/24 patch morphine 15 mg immediate release 15 mg PO TID PRN #42 tabs 10/11/24 tablet Previous Rx's ?Medication ?Instructions ?Recorded hydromorphone 2 mg tablet 2 mg PO Q6H #30 tabs 09/29/24 cyclobenzaprine 10 mg tablet 10 mg PO TID PRN #10 tabs 10/11/24 fentanyl 25 mcg/hr transdermal 1 patch transdermal Q72H #5 ea 10/11/24 patch morphine 15 mg immediate release 15 mg PO TID PRN #42 tabs 10/11/24 tablet Allergies Allergy/AdvReac Type Severity Reaction Status Date / Time No Known Allergies Allergy Verified 10/11/24 07:59 General Stated Complaint: Orthopedic REX: 3 Exam Narrative Exam Narrative: Alert and oriented 29-year-old female in acute distress, lungs with crackles and rhonchi on radiates diminished oropharynx patent uvula midline pupils equal round reactive light accommodation cardiac rate rhythm sinus tachycardia, no murmur, no abdominal tenderness left hip tenderness neurovascularly intact bilateral lower extremities no swelling or tenderness appreciated to bilateral quad calfs Course Vital Signs Vital signs: Vital Signs Temperature 36.4 C 10/11/24 07:53 Pulse 117 H 10/11/24 07:53 Respiratory Rate 15 10/11/24 07:53 Blood Pressure 123/72 10/11/24 07:53 Pulse Oximetry 98 10/11/24 07:53 Temperature 36.4 C 10/11/24 07:53 Temperature Source Tympanic 10/11/24 07:53 Pulse 105 H 10/11/24 14:01 Pulse 105 H 10/11/24 14:01 Respiratory Rate 31 H 10/11/24 14:01 Blood Pressure 116/61 10/11/24 14:00 Blood Pressure Mean 78 10/11/24 14:00 Blood Pressure Position Sitting 10/11/24 07:53 Pulse Oximetry 98 10/11/24 14:01 Oxygen Delivery Method Room Air 10/11/24 07:53 Oxygen Flow Rate 0 10/11/24 07:53 Pain Level 10 10/11/24 07:53 Lab/Test Results Lab/Test Results: Laboratory Tests Range/Units 10/11/24 08:43 WBC (4.4-10.8) 10^3/uL 15.51 H RBC (3.93-5.22) 10^6/uL 3.40 L Hgb (11.2-15.7) g/dL 11.8 Hct (36.0-46.0) % 34.8 L MCV (80-95) fL 102 H MCH (27.0-33.0) pg 34.7 H MCHC (32.0-36.0) % 33.9 RDW (11.7-14.6) % 16.3 H Plt Count (130-400) 10^3/uL 319 MPV (8.0-11.0) fL 9.3 Immature Gran % % 1.0 Neutrophils % % 88.9 Lymphocytes % % 4.8 Monocytes % % 4.9 Eosinophils % % 0.0 Basophils % % 0.4 Nucleated RBC % (0.0-0.3) % 0.0 Absolute Neutrophils (1.2-6.7) 10^3/uL 13.79 H Absolute Lymphocytes (1.2-3.4) 10^3/uL 0.74 L Absolute Monocytes (0.1-0.8) 10^3/uL 0.76 Absolute Eosinophils (0.0-0.7) 10^3/uL 0.00 Absolute Basophils (0.0-0.2) 10^3/uL 0.06 Sodium (136-145) mmol/L 138 Potassium (3.5-5.1) mmol/L 4.0 Chloride (98-107) mmol/L 103 Carbon Dioxide (21.0-32.0) mmol/L 27.0 Anion Gap (3-11) mmol/L 8.0 BUN (7-18) mg/dL 9 Creatinine (0.55-1.02) mg/dL 0.8 Est GFR (CKD-EPI 2020) (mL/min/1.73m2) 101.59 Glucose (74-106) mg/dL 123 H Calcium (8.5-10.1) mg/dL 10.8 H Total Bilirubin (0.2-1.0) mg/dL 0.3 AST (15-37) U/L 47 H ALT (14-59) U/L 159 H Alkaline Phosphatase (46-116) U/L 93 Total Protein (6.4-8.2) g/dL 7.0 Albumin (3.4-5.0) g/dL 4.0 ABO/Rh A Positive Antibody Screen NEGATIVE Medical Decision Making Results discussed with radiologist x 3, approximately 10 minutes reviewing and discussing patient's CT, x-ray of patient's pelvis today shows mass eroding intertrochanter of femur, MRI encouraged, MRI shows 5 x 3 cm mass with displacement of iliopsoas tendon chest x-ray shows right hemithorax whiteout per radiology interpretation my review Initial Assessment: 29-year-old female with recent diagnosis of small cell lung carcinoma with likely metastasis to left hip. Presents with chest tightness, worsening shortness of breath, and worsening left hip pain, significantly impairing mobility. Denies fever, chills, clots, falls, or injuries. Reports scant blood when coughing. ED Course: - Transferred for management secondary to extensive disease, pain, and hemoptysis. - Scheduled with radiation oncology, orthopedics, and palliative care. - Last chemotherapy on 09/24/2024. - Missed initial palliative care appointment, wishes to reschedule. - On fentanyl patch, Dilaudid 2 mg every 6 hours, and oxycodone 10 mg every 4 hours for pain, still reports excruciating discomfort. - Secondary patient in severity mass which is eroded a portion of the femur but there is no evidence of pathological fracture yet this was displacing the iliopsoas muscle and likely contributing to patient's pain, shows total hemithorax on right Case discussed with on-call from [facility] with recommendation to increase patient's pain medication regimen. Will increase fentanyl to 25 mcg daily and morphine IR 15 mg every 6 hours. I have spoken with palliative care and made an appointment for October 29 at 9 AM 13 of expressed the importance's - The oncologist at [facility] will touch base with patient's radiation oncologist so that this may be arranged soon as possible I was about to discharge patient when she developed some bronchospastic pain, I gave her an albuterol with 2 cc of lidocaine and she had good improvement of symptoms I also have given her a prescription for an Asmanex inhaler as I suspect the inhaled steroid will be much safer as she does have a history of glaucoma and is not safe to continue to take oral steroids patient is aware the there is still some risk associated with taking inhaled steroids, secondary to the pain patient is experiencing in the bronchospasm I think the benefit outweighs the risk, of course she is encouraged to follow-up with her compatibility test engineer regarding this -This case was very complex and I spent approximately 6-1/2 hours managing this patient including discussions with specialists radiologist and pain management. - I did consider pulmonary embolism, however the patient had a CTA approximately 2 weeks ago and she has not hypoxic and was not initially tachypneic and so I think the risk is lower, she does have cancer and certainly is at risk for having a pulmonary embolism, however at this time I will hold on additional CT imaging of patient's chest and she is encouraged to follow-up with primary care physician tomorrow - We discussed the significant importance of palliative care at this time to help manage patient's pain and prognosis and patient and boyfriend expressed understanding, supportive family in room Final Assessment: Patient with small cell lung carcinoma and likely metastasis to left hip presents with worsening chest tightness, shortness of breath, and left hip pain. Pain management is inadequate with current medications. Needs rescheduling of palliative care appointment. 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 MDM Components Evaluation: - Number of Differential Diagnoses or Management Options: Small cell lung carcinoma with likely metastasis to left hip, Metastasis to left hip - Amount and Complexity of Data Reviewed: Chemotherapy history, pain management medications, missed palliative care appointment - Risk of Complication and Morbidity or Mortality: High risk due to extensive disease, pain, and hemoptysis Quality:SDOH Health Related Social Needs: Health related social needs problems related to elizabethin g/economic circumstances (Z59.89) PFSH All Active Problems (Updated 10/11/24 @ 13:44 by NAVIN Weeks) Non-small cell carcinoma of lung, stage 4 (Chronic) Leukocytosis (leucocytosis) (Acute) Metastatic lung cancer (metastasis from lung to other site) (Acute) Chronic uveitis of both eyes (Acute) Medical History 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 PAWSS Have you Been Recently Intoxicated or Drunk Within the Last 30 days?: No Have you Ever Experienced Previous Episodes of Alcohol Withdrawal?: No Have you ever Experienced Withdrawal Seizures?: No Have you ever Experienced Delirium Tremens(DT)s?: No Have you ever undergone Alcohol Rehabilitation Treatment (i.e, inpt ot outpatient treatment programs)?: No Have you ever Experienced Blackouts?: No Have you ever Combined Alcohol with other Downers within the last 90 days?: No Have you ever Combined Alcohol with any other Substance of Abuse during the last 90 days?: No Result: 0
[2024-10-11] MEDS: Mometasone 220 MCG 14 DOSE INHALER 2 PUFF IH (14:58)
== END 2024-10-11 15:20 | disposition home or self-care (01) ==
PROVIDERS: Emergency Provider Physician Assistant; PCP Nurse Practitioner Adult Health
DX: M25.552 Pain in left hip (principal); R07.9 Chest pain, unspecified; R06.02 Shortness of breath; C34.90 Malignant neoplasm of unspecified part of unspecified bronchus or lung; C79.51 Secondary malignant neoplasm of bone; Z92.21 Personal history of antineoplastic chemotherapy; Z87.891 Personal history of nicotine dependence
CPT/HCPCS: 73552; 73721; 80053; 86850; 86900; 86901; 94640; 96374; 96375; 96376; 99284; 71046; 72170; 85025; J1100; J1171; J2003; J3360; J7613

== ENCOUNTER 2024-10-16 03:41 | Outpatient (CLI) | payer OTHER, SELFPAY ==
[2024-10-16 10:42] LABS: Abs Immature Grans 0.15 10^3/uL (0.0-0.06); Absolute Basophil Count 0.13 10^3/uL (0.0-0.2); Absolute Lymphocyte Count 1.42 10^3/uL (1.2-3.4); Absolute Neutrophil Count 23.18 10^3/uL (1.2-6.7); Basophils % 0.5 %; Eosinophils % 0.1 %; HCT 38.6 % (36.0-46.0); HGB 13.6 g/dL (11.2-15.7); Immature Grans % 0.6 %; Lymphocytes % 5.3 %; MCH 35.4 pg (27.0-33.0); MCHC 35.2 % (32.0-36.0); MCV 101 fL (80-95); MPV 8.9 fL (8.0-11.0); Monocytes % 7.2 %; Neutrophils % 86.3 %; Platelet Count 328 10^3/uL (130-400); RBC 3.84 10^6/uL (3.93-5.22); RDW 16.4 % (11.7-14.6); RDW-SD 60.3 fL
[2024-10-16 10:47] LABS: Absolute Eosinophil Count 0.03 10^3/uL (0.0-0.7); Absolute Monocyte Count 1.93 10^3/uL (0.1-0.8)
[2024-10-16 10:55] LABS: Diff Comment Diff Reviewed; RBC Morphology Normal; WBC 26.86 10^3/uL (4.4-10.8)
[2024-10-16 11:10] LABS: ALT 85 U/L (14-59); AST 30 U/L (15-37); Alkaline Phosphatase 129 U/L (46-116); Anion Gap 4.7 mmol/L (3-11); BUN 9 mg/dL (7-18); Bilirubin, Total 0.5 mg/dL (0.2-1.0); CO2 30.3 mmol/L (21.0-32.0); CREATININE 0.9 mg/dL (0.55-1.02); Chloride 103 mmol/L (98-107); FREE T4 0.96 ng/dL (0.76-1.46); Glucose 111 mg/dL (74-106); Magnesium 1.4 mg/dL (1.8-2.4); Potassium 3.3 mmol/L (3.5-5.1); Sodium 138 mmol/L (136-145); TSH 2.44 uIU/mL (0.36-3.74)
[2024-10-16 11:13] LABS: Calcium 15.2 mg/dL (8.5-10.1)
== END 2024-10-16 03:42 | disposition home or self-care (01) ==
LOC: LBO 03:41
PROVIDERS: PCP Nurse Practitioner Adult Health; Visit Provider Internal Medicine Medical Oncology
DX: C34.91 Malignant neoplasm of unspecified part of right bronchus or lung (principal); C79.51 Secondary malignant neoplasm of bone; Z79.899 Other long term (current) drug therapy
CPT/HCPCS: 36415; 80053; 83735; 84439; 84443; 85025

== ENCOUNTER 2024-10-16 12:36 | Emergency (ER) | payer OTHER, SELFPAY ==
[2024-10-16] VITALS (70 sets, daily range): BP systolic 110–144; BP diastolic 63–120; PULSE 113–133; RESP 15–40; TEMP 36.7; O2SAT 89–100
--- NOTE | 2024-10-16 13:00 | RT.EKG_ITS ---
APPROVED REPORT Exam: Resting ECG Reason for Exam: hypercalcemia Patient Location: E HR:121 bpm ECG Measurements Heart Rate 121 AXIS WI 104 P 81 QRSd 67 QRS 65 QT 283 T 8 QTc 402 Conclusion Sinus tachycardia, rate 121 No interval abnormalities No STEMI Compared to priors, rate has increased
--- NOTE | 2024-10-16 13:19 | ED.GENADUL_ITS ---
Discharge Plan Discharge Details Chief Complaint: GenMedical Primary Care Provider: Tania Lezama ED Provider: Laura Britt Home Meds and New Rx's Prescriptions: No Action dorzolamide 2 % drops 1 drp ophthalmic (eye) BID Rx Instructions: Place in both eyes prednisolone acetate 1 % drops,suspension 1 drp ophthalmic (eye) BID levonorgestrel 14 mcg/24 hr (3 yrs) 13.5 mg intrauterine device 1 device intrauterine ONCE Rx Instructions: as a single dose latanoprost 0.005 % drops 1 drp ophthalmic (eye) QPM Rx Instructions: BOTH eyes fentanyl 25 mcg/hr patch 72 hour 1 patch transdermal Q72H Qty: 5 0RF morphine 15 mg tablet 15 mg PO TID PRNQty: 42 0RF cyclobenzaprine 10 mg tablet 10 mg PO TID PRNQty: 10 0RF pemetrexed IV durvalumab IV carboplatin IV tremelimumab-actl IV albuterol 90 mcg/actuation aerosol 180 mcg inhalation Q4H PRN brimonidine-timolol [Combigan] 0.2-0.5 % drops 1 drp ophthalmic (eye) BID duloxetine [Cymbalta] 30 mg capsule,delayed release(DR/EC) 30 mg PO DAILY folic acid 1 mg tablet 1 mg PO DAILY prochlorperazine maleate [Compazine] 10 mg tablet 10 mg PO Q6H PRN hydromorphone 2 mg tablet 2 mg PO Q6H Qty: 30 0RF HPI General Date/Time Provider Initiated Documentation: 10/16/24 12:54 . HPI Narrative: Brenda is a 29 year old female who presents to the emergency department today for evaluation of hypercalcemia. She was at the cancer center today about to receive IV infusions of chemotherapy and immunotherapy when her routine blood work showed severe hypercalcemia. She is under treatment for lung cancer with metastasis to the left hip. She reports that yesterday she had an episode of dizziness when she got up from the tub, causing her to fall onto her left hip. She had pain immediately after incident, but says that it feels like baseline pain at this time. Denies associated fever/chills, headache, congestion, change in baseline cough, nausea/vomiting, abdominal pain, change in bowel or bladder function, extremity weakness/parasthesias. Does have constipation per baseline. She was evaluated over the weekend for right sided chest pain with shortness of breath and left hip pain; no change in symptoms from this weekend. No change in symptoms from this weekend. Denies significant past medical history other than cancer Physical exam remarkable for right-sided chest wall tenderness. Patient is alert and oriented, no acute distress. Easy work of breathing, lung sounds clear bilaterally. Occasional dry cough. Normal heart sounds, tachycardia noted. 5/5 muscle strength upper and lower extremities D/dx includes but is not limited to: Hypercalcemia of malignancy, osteolytic bone metastases, adrenal insufficiency, occult infection, dehydration, PE. Left hip pain concerning for possible pathologic fracture due to presence of metastasis. I independently interpreted the following tests: CBC notable for significant leukocytosis, white cell count 26.86 (most recent 15.51 on 10/11/2024). CMP notable for calcium 15.2 (previous 10.8 on 10/11/2024). Mild hypokalemia with potassium 3.3. Hypomagnesemia noted, magnesium 1.4. Lipase negative hCG negative. TSH and T4 reassuring. EKG notable for sinus tachycardia, rate 121, mild diffuse ST segment elevations noted, no ischemic changes. Normal intervals; ST segment elevations likely hypercalcemia induced, will repeat EKG after IV fluids. While in the emergency department, Brenda received morphine 4 mg IV and Tylenol for pain control of right sided chest wall pain. 1 L normal saline bolus given with 250 cc/h infusion initiated. IV magnesium given for replenishment. I did review previous records, including recent ED visit note from 10/11/2024. Handoff report given to NAVIN Brewer, evening ITZEL; CTA and repeat BMP pending. Related Data Home Medications ?Medication ?Instructions ?Recorded ?Confirmed dorzolamide 2 % eye drops 1 drp ophthalmic (eye) BID 08/24/24 10/16/24 latanoprost 0.005 % eye drops 1 drp ophthalmic (eye) QPM 08/24/24 10/16/24 levonorgestrel 14 mcg/24 hr (up to 1 device intrauterine ONCE 08/24/24 10/16/24 3 yrs) 13.5 mg intrauterine device prednisolone acetate 1 % eye 1 drp ophthalmic (eye) BID 08/24/24 10/16/24 drops,suspension albuterol 90 mcg/actuation aerosol 180 mcg inhalation Q4H PRN 09/28/24 10/16/24 inhaler brimonidine 0.2 %-timolol 0.5 % 1 drp ophthalmic (eye) BID 09/28/24 10/16/24 eye drops (Combigan) carboplatin IV 09/28/24 duloxetine 30 mg capsule,delayed 30 mg PO DAILY 09/28/24 10/16/24 release (Cymbalta) durvalumab IV 09/28/24 folic acid 1 mg tablet 1 mg PO DAILY 09/28/24 10/16/24 pemetrexed IV 09/28/24 prochlorperazine maleate 10 mg 10 mg PO Q6H PRN 09/28/24 10/16/24 tablet (Compazine) tremelimumab-actl IV 09/28/24 hydromorphone 2 mg tablet 2 mg PO Q6H #30 tabs 09/29/24 10/16/24 cyclobenzaprine 10 mg tablet 10 mg PO TID PRN #10 tabs 10/11/24 10/16/24 fentanyl 25 mcg/hr transdermal 1 patch transdermal Q72H #5 ea 10/11/24 10/16/24 patch morphine 15 mg immediate release 15 mg PO TID PRN #42 tabs 10/11/24 10/16/24 tablet Previous Rx's ?Medication ?Instructions ?Recorded hydromorphone 2 mg tablet 2 mg PO Q6H #30 tabs 09/29/24 cyclobenzaprine 10 mg tablet 10 mg PO TID PRN #10 tabs 10/11/24 fentanyl 25 mcg/hr transdermal 1 patch transdermal Q72H #5 ea 10/11/24 patch morphine 15 mg immediate release 15 mg PO TID PRN #42 tabs 10/11/24 tablet Allergies Allergy/AdvReac Type Severity Reaction Status Date / Time No Known Allergies Allergy Verified 10/16/24 12:46 General Stated Complaint: GenMedical REX: 3 Review of Systems Narrative: see HPI Exam Const General: cooperative, healthy appearing and no acute distress Nutritional Appearance: average body habitus and well nourished Orientation: alert and oriented x3 Neck Neck: normal visual inspection Chest Chest: tenderness (Right anterior chest wall) Resp Effort & Inspection: normal respiratory effort and able to speak in complete sentences Auscultation: clear to auscultation bilaterally Cardio Rate: tachycardic Rhythm: regular rhythm GI Inspection: other (Approximately 2 cm round mass noted in epigastrium, unchanged per pt) Palpation: soft, not firm, no guarding and nontender Auscultation: normal bowel sounds Skin General skin exam: no rashes or lesions noted Neuro General: patient alert, patient oriented x3, tone normal and moves all extremities Cranial Nerves: facial strength normal Cognition: normal cognition Speech: speech normal Motor: muscle tone normal throughout and strength 5/5 throughout Sensory Exam: no sensory deficits noted Course Vital Signs Vital signs: Vital Signs Temperature 36.7 C 10/16/24 12:43 Pulse 130 H 10/16/24 12:43 Respiratory Rate 16 10/16/24 12:43 Blood Pressure 117/78 10/16/24 12:43 Pulse Oximetry 98 10/16/24 12:43 Temperature 36.7 C 10/16/24 12:47 Pulse 130 H 10/16/24 12:47 Respiratory Rate 16 10/16/24 12:47 Blood Pressure 117/78 10/16/24 12:47 Pulse Oximetry 98 10/16/24 12:47 Medical Decision Making Quality:SDOH Health Related Social Needs: Health related social needs problems related to housin g/economic circumstances (Z59.89) PFSH All Active Problems (Updated 10/11/24 @ 13:44 by NAVIN Weeks) Non-small cell carcinoma of lung, stage 4 (Chronic) Leukocytosis (leucocytosis) (Acute) Metastatic lung cancer (metastasis from lung to other site) (Acute) Chronic uveitis of both eyes (Acute) Medical History 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
[2024-10-16] MEDS: Acetaminophen 325 MG TAB 650 MG PO (14:31)
[2024-10-16] MEDS: MORPHine 4 MG/ML SYR IVP ×2 (14:32→21:29)
[2024-10-16] MEDS: MAGNESIUM SULFATE 2 GM/50 ML BAG IV_INF (14:32)
[2024-10-16 14:33] LABS: Lipase 12 U/L (<78); PHOSPHORUS 2.9 mg/dL (2.6-4.7)
[2024-10-16] MEDS: Normal Saline 1,000 ML 1000 ML IV ×2 (14:36→18:10)
--- NOTE | 2024-10-16 14:48 | DI.CT_ITS ---
Exam(s) CT CHEST PE CTA EXAM: CT CHEST PE CTA CLINICAL HISTORY: R sided CP, SOB, tachycardia. TECHNIQUE: Imaging Protocol: CT angiography of the chest was performed using pulmonary embolus marquita col. Multi planar reconstructions were performed. CONTRAST MATERIAL: Intravenous: Omnipaque 350 Contrast volume: 100 cc COMPARISON: CT CT CHEST PE CTA from 09/28/2024 Chest x-ray 10/11/2024 FINDINGS: CHEST: PULMONARY ARTERIES: There are no intraluminal filling defects to suggest acute pulmonary emboli in th e left lung. However, the right main pulmonary artery is again noted to be occluded at its origin, s imilar to 09/28/2024 and there is no opacification of right-sided pulmonary arteries within the right lung. These findings are related to tumor invasion of the mediastinum. LUNGS: There is complete opacification of the right hemithorax combination of collapsed lung and neop lasm and pleural effusion. No pleural effusion on the opposite-left side but there is a E noncalcifi ed nodule in the superior lingular segment of the left lung noted which measures 8 mm, similar to pre vious and possibly metastatic. MEDIASTINUM: There is tumor invasion of the mediastinum and probably right side of the pericardium as well as subcarinal region. There is adenopathy the seen anterior to the trachea and in the anterior mediastinum. CARDIAC: Heart size is upper normal. There is no obvious pericardial effusion.Caliber of the thoraci c aorta is within normal limits. No dissection. There is no significant shift of the interventricula r septum. PARTIALLY VISUALIZED UPPERMOST ABDOMEN: No obvious findings OSSEOUS: No significant osseous findings in the field of view of this chest study. No lytic lesions. No fractures.. IMPRESSION: 1. There is occlusion of the right main pulmonary artery at its origin and there is no opacification of pulmonary arteries in the right lung distal to this. This is related to advanced tumor invasion i nto the mediastinum from the right lung neoplasm. There is no evidence of pulmonary embolus in the l eft lung.. 2. There is complete opacification of the right hemithorax related to prominent pleural effusion plus lung neoplasm. There is a single 8 millimeter probable metastatic nodule in the left lung at the campoverde perior lingular segment level. There is no pleural effusion on the left side. 3. Extensive mediastinal tumor invasion and mediastinal adenopathy. Report called by myself to ER provider 10/16/2024 at 4:11 p.m. RADIATION DOSE DELIVERED: 76.85mGy.cm Total DLP DATA REPOSITORY: All CT scans at this facility are submitted to the National Radiology Data Registry (NRDR) Dose Index Registry (DIR) with the [employer] (A[employer]). RADIATION OPTIMIZATION: All CT scans at this facility use at least one of these dose optimization te chniques: automated exposure control; mA and/or kV adjustment per patient size (includes targeted exa ms where dose is matched to clinical indication); or iterative reconstruction.
[2024-10-16 15:13] LABS: HCG Qual (Serum) Negative
--- NOTE | 2024-10-16 15:15 | RT.EKG_ITS ---
APPROVED REPORT Exam: Resting ECG Reason for Exam: recheck Patient Location: E HR:119 bpm ECG Measurements Heart Rate 119 AXIS IN 117 P 74 QRSd 61 QRS 74 QT 281 T 20 QTc 396 Conclusion Sinus tachycardia...rate> 99 ST elevation suggests acute pericarditis...ST >0.10mV, ant/lat/inf Sinus Tachy Normal axis/interval NS ST flattening throughout, no elevation There are no significant changes compared to prior EKG performed on 10/16/2024 at 13:21.
[2024-10-16] MEDS: Normal Saline - Diluent 50 ML VIAL IJ (15:32)
[2024-10-16] MEDS: Omnipaque 350 MG/ML 100 ML BTL IJ (15:33)
[2024-10-16 15:52] LABS: Anion Gap 3.7 mmol/L (3-11); BUN 10 mg/dL (7-18); CO2 31.3 mmol/L (21.0-32.0); CREATININE 0.9 mg/dL (0.55-1.02); Chloride 102 mmol/L (98-107); Glucose 106 mg/dL (74-106); Potassium 3.2 mmol/L (3.5-5.1); Sodium 137 mmol/L (136-145)
--- NOTE | 2024-10-16 15:52 | DI.RAD_ITS ---
Exam(s) XR HIP LT COMPLETE AP PELVIS EXAM: XR HIP LT COMPLETE AP PELVIS CLINICAL HISTORY: fall onto L hip yesterday, h/o CA met. TECHNIQUE: 2D digital imaging was performed. COMPARISON: No exams were available for comparison FINDINGS: Two views There is no evidence of acute fracture. The lytic destruction of the medial aspect of the left hip l araceli trochanter and adjacent subtrochanteric medial cortex is again noted, unchanged. There does no t appear to be an obvious fracture at this level nor elsewhere in the pelvis. Some contrast is seen in the ureters most probably related to recent CT scan. IMPRESSION: Lytic metastatic disease in the medial left hip as described above, unchanged from 10/11/2024 but wit hout evidence of obvious pathologic fracture at this level. No fractures also in the pelvis DATA REPOSITORY: RADIATION DOSE DELIVERED:
[2024-10-16 15:56] LABS: Calcium 15.3 mg/dL (8.5-10.1)
--- NOTE | 2024-10-16 16:02 | ED.PROG_ITS ---
Date of service: 10/16/24 Time of Service: 16:02 Medical Decision Making This dictation utilizes [id number] dictation software and may contain unedited grammatical errors. Patient seen in signout from Laura Ratliff NP, please see her complete note. 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 She had been given 1 L of fluids and her repeat BMP shows a calcium of 15.3 hours after her outpatient draw, she had been given 2 g IV magnesium as well as potassium 25 mEq p.o, Tylenol and morphine. Awaiting [facility] [place] Call-back for possible transfer, recommendations on allupurinol. 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 Differential / pathologies of concern include Hypercalcemia, Tumor Lysis Syndrome, PE, R Pleural Effusion, Pulmonary Infarct. Diagnostic studies of: -Reviewed prior studies of: CBC/BMP (from outpatient), Phosphorus, Lipase, hCG qualitative, 2 EKGs, left hip x-ray. -CBC shows leukocytosis at 26.86, no anemia, elevated absolute neutrophil 23.18, elevated monocyte count 1.93 - Outpatient BMP showed no hyponatremia, mild hypokalemia 3.3, calcium 15.2, magnesium 1.4, chronic benign LFT elevation ALT and alk phos, TSH 2.44, free T40.96 -hCG qualitative negative -Lipase 12 -Phos WNL -Ionized Calcium sent-out -EKG 1321- shows sinus tachycardia 121, SC interval 104, narrow complex QRS without Marin waves, normal axis, shortened QT 283, not to 60 yet, no ST elevation or depressions -EKG 1559- shows sinus tach @ 119, same intervals, no orborne waves *CT Chest PE Study pending, repeat BMP pending after 1L IVF, *Added uric acid level, recheck magnesium -Repeat BMP shows calcium 15.3 -CT shows R hemithorax completely opacified- R pulmonary artery completely occluded (worse interval since 09/28/24) - likely requires drainage, tumor has grown into mediastinum Interventions of: -Consult [facility] [place] Oncology - Spoke with transfer center at 1628- Spoke at [address] Barnes from her Oncology team- patient needs thoracentesis and drain, likely in-patient hospice & allupurinol - and recommends one dose Zoledronic Acid- they have capacity to accept patient. [facility] [place] Hospitalist Dr. Salinas accepts at 1813. If patient remains here checking 6-hour calcium level. -Held further fluids at Oncology recc., given 1 dose 10mg IV morphine shortly after sign-out, given 6mg IVP morphine just prior to transfer. -Given 200mg PO allopurinol -Given 4mg IV Zoledronic Acid one dose -Bed assigned 1936. ED Course/Assessment/Plan: 29-year-old female seen in signout from prior provider with severe hypercalcemia without emergent EKG changes at this time has a worsening malignant pleural effusion of the right lung with now full occlusion of the right pulmonary artery, likely in need of therapeutic thoracentesis, she has mets to left hip is likely source of hypercalcemia, mildly elevated uric acid and was given allopurinol to prevent hyperuricemia, I spoke with oncology at [facility] [place] who recommends transfer, spoke with hospitalist service who accepted as above. Patient merely needed pain control and remained not hypoxic on room air, has a persistent cough here in the ED, patient likely needs counseling on prognosis possibly hospice care. Findings not consistent with hypoxic respiratory failure, emergent EKG changes of hypercalcemia. Disposition of Malignant pleural effusion, occlusion of right pulmonary artery, hypercalcemia. Patient verbalized understanding of the plan and return to ED criteria and engaged in shared decision making. Medical Records Medical records reviewed: Yes I reviewed the patient's medical records. Imaging Data Radiologic Study: Attestation: I personally reviewed and interpreted this imaging study as follows: Imaging: X-Ray Radiologist's impression: EXAM: XR HIP LT COMPLETE AP PELVIS CLINICAL HISTORY: fall onto L hip yesterday, h/o CA met. TECHNIQUE: 2D digital imaging was performed. COMPARISON: No exams were available for comparison FINDINGS: Two views There is no evidence of acute fracture. The lytic destruction of the medial aspect of the left hip lesser trochanter and adjacent subtrochanteric medial cortex is again noted, unchanged. There does not appear to be an obvious fracture at this level nor elsewhere in the pelvis. Some contrast is seen in the ureters most probably related to recent CT scan. IMPRESSION: Lytic metastatic disease in the medial left hip as described above, unchanged from 10/11/2024 but without evidence of obvious pathologic fracture at this level. No fractures also in the pelvis Radiologic Study #2: Attestation: I personally reviewed and interpreted this imaging study as follows: Imaging: CT Scan Radiologist's impression: EXAM: CT CHEST PE CTA CLINICAL HISTORY: R sided CP, SOB, tachycardia. TECHNIQUE: Imaging Protocol: CT angiography of the chest was performed using pulmonary embolus protocol. Multi planar reconstructions were performed. CONTRAST MATERIAL: Intravenous: Omnipaque 350 Contrast volume: 100 cc COMPARISON: CT CT CHEST PE CTA from 09/28/2024 Chest x-ray 10/11/2024 FINDINGS: CHEST: PULMONARY ARTERIES: There are no intraluminal filling defects to suggest acute pulmonary emboli in the left lung. However, the right main pulmonary artery is again noted to be occluded at its origin, similar to 09/28/2024 and there is no opacification of right-sided pulmonary arteries within the right lung. These findings are related to tumor invasion of the mediastinum. LUNGS: There is complete opacification of the right hemithorax combination of collapsed lung and neoplasm and pleural effusion. No pleural effusion on the opposite-left side but there is a E noncalcified nodule in the superior lingular segment of the left lung noted which measures 8 mm, similar to previous and possibly metastatic. MEDIASTINUM: There is tumor invasion of the mediastinum and probably right side of the pericardium as well as subcarinal region. There is adenopathy the seen anterior to the trachea and in the anterior mediastinum. CARDIAC: Heart size is upper normal. There is no obvious pericardial effusion.Caliber of the thoracic aorta is within normal limits. No dissection. There is no significant shift of the interventricular septum. PARTIALLY VISUALIZED UPPERMOST ABDOMEN: No obvious findings OSSEOUS: No significant osseous findings in the field of view of this chest study. No lytic lesions. No fractures.. IMPRESSION: 1. There is occlusion of the right main pulmonary artery at its origin and there is no opacification of pulmonary arteries in the right lung distal to this. This is related to advanced tumor invasion into the mediastinum from the right lung neoplasm. There is no evidence of pulmonary embolus in the left lung.. 2. There is complete opacification of the right hemithorax related to prominent pleural effusion plus lung neoplasm. There is a single 8 millimeter probable metastatic nodule in the left lung at the superior lingular segment level. There is no pleural effusion on the left side. 3. Extensive mediastinal tumor invasion and mediastinal adenopathy. Lab Data Lab results reviewed: Yes I reviewed the patient's lab results. Labs: Laboratory Tests Range/Units 10/16/24 14:03 Sodium (136-145) mmol/L 137 Potassium (3.5-5.1) mmol/L 3.2 L Chloride (98-107) mmol/L 102 Carbon Dioxide (21.0-32.0) mmol/L 31.3 Anion Gap (3-11) mmol/L 3.7 BUN (7-18) mg/dL 10 Creatinine (0.55-1.02) mg/dL 0.9 Est GFR (CKD-EPI 2020) (mL/min/1.73m2) 88.20 Glucose (74-106) mg/dL 106 Uric Acid (2.6-6.0) mg/dL 7.1 H Calcium (8.5-10.1) mg/dL 15.3 H* Phosphorus (2.6-4.7) mg/dL 2.9 Magnesium (1.8-2.4) mg/dL 1.5 L Lipase (<78) U/L 12 Serum HCG, Qual Negative Uric Acid 7.1 Magnesium 1.5 Quality:SDOH Health Related Social Needs: Health related social needs problems related to housin g/economic c ircumstances (Z59.89) Discharge Plan Disposition Patient Disposition: Transfer-Acute Inpatient Care Specific Acute Inpt Facility: [facility] Condition: Fair Discharge Details Clinical Impression: Malignant pleural effusion, Occlusion of right pulmonary artery, Hypercalcemia Primary Care Provider: Tania Lezama ED Provider: Bryon Salinas Home Meds and New Rx's Prescriptions: No Action dorzolamide 2 % drops 1 drp ophthalmic (eye) BID Rx Instructions: Place in both eyes prednisolone acetate 1 % drops,suspension 1 drp ophthalmic (eye) BID levonorgestrel 14 mcg/24 hr (3 yrs) 13.5 mg intrauterine device 1 device intrauterine ONCE Rx Instructions: as a single dose latanoprost 0.005 % drops 1 drp ophthalmic (eye) QPM Rx Instructions: BOTH eyes fentanyl 25 mcg/hr patch 72 hour 1 patch transdermal Q72H Qty: 5 0RF morphine 15 mg tablet 15 mg PO TID PRNQty: 42 0RF cyclobenzaprine 10 mg tablet 10 mg PO TID PRNQty: 10 0RF pemetrexed IV durvalumab IV carboplatin IV tremelimumab-actl IV albuterol 90 mcg/actuation aerosol 180 mcg inhalation Q4H PRN brimonidine-timolol [Combigan] 0.2-0.5 % drops 1 drp ophthalmic (eye) BID duloxetine [Cymbalta] 30 mg capsule,delayed release(DR/EC) 30 mg PO DAILY folic acid 1 mg tablet 1 mg PO DAILY prochlorperazine maleate [Compazine] 10 mg tablet 10 mg PO Q6H PRN hydromorphone 2 mg tablet 2 mg PO Q6H Qty: 30 0RF
[2024-10-16] MEDS: Potassium Bicarbonate/Cit AC 25 MEQ TABLET.EFF PO (16:12)
[2024-10-16] MEDS: MORPHine 10 MG/ML VIAL IVP (16:46)
[2024-10-16 17:13] LABS: Magnesium 1.5 mg/dL (1.8-2.4); Uric Acid 7.1 mg/dL (2.6-6.0)
[2024-10-16] MEDS: Allopurinol 100 MG TAB 200 MG PO (18:39)
[2024-10-16] MEDS: MORPHine 10 MG/ML VIAL 6 MG IVP (19:36)
[2024-10-16 20:03] LABS: Bilirubin Negative (Negative); Blood Negative (Negative); Clarity Clear (Clear); Glucose Negative (Negative); Ketones Negative (Negative); Leukocyte Esterase Negative (Negative); Nitrite Negative (Negative); Specific Gravity 1.015 (1.005-1.025); Urobilinogen 0.2 mg/dL (Up to 0.2)
[2024-10-16] MEDS: Lidocaine 5% Patch 1 PATCH TP (21:06)
[2024-10-16] MEDS: ACETAMINOPHEN 1,000 MG/100 ML BAG 400 MG IVPB (21:29)
[2024-10-16 21:45] LABS: Ionized Calcium 1.83 mmol/L (1.14-1.35)
== END 2024-10-16 21:55 | disposition short-term general hospital (02) ==
PROVIDERS: Nurse Practitioner Family; Emergency Provider Physician Assistant; PCP Nurse Practitioner Adult Health
DX: C34.91 Malignant neoplasm of unspecified part of right bronchus or lung (principal); I27.0 Primary pulmonary hypertension; E83.52 Hypercalcemia; Z79.69 Long term (current) use of other immunomodulators and immunosuppressants
CPT/HCPCS: 99285 ×2; 96375; 96376; 00123; 71275; 80048; 83690; 93005; 96365; 96366; J3489; 73502; 81003; 82330; 83735; 84100; 84550; 84703; 93010; J0131; J2270; J3475; J3490

== ENCOUNTER 2024-11-12 11:32 | Outpatient (REF) | payer OTHER, SELFPAY ==
[2024-11-12 11:58] LABS: Absolute Eosinophil Count 0.02 10^3/uL (0.0-0.7); Basophils % 0.8 %; Eosinophils % 0.1 %; HCT 29.8 % (36.0-46.0); HGB 10.3 g/dL (11.2-15.7); Immature Grans % 0.6 %; Lymphocytes % 5.1 %; MCH 35.5 pg (27.0-33.0); MCHC 34.6 % (32.0-36.0); MCV 103 fL (80-95); MPV 10.9 fL (8.0-11.0); Monocytes % 10.2 %; Neutrophils % 83.2 %; Nucleated RBC 0.1 % (0.0-0.3); Platelet Count 288 10^3/uL (130-400); RDW 19.3 % (11.7-14.6); RDW-SD 70.5 fL; WBC 15.54 10^3/uL (4.4-10.8)
[2024-11-12 12:05] LABS: Absolute Basophil Count 0.12 10^3/uL (0.0-0.2); Absolute Lymphocyte Count 0.79 10^3/uL (1.2-3.4); Absolute Monocyte Count 1.59 10^3/uL (0.1-0.8); Absolute Neutrophil Count 12.93 10^3/uL (1.2-6.7)
[2024-11-12 12:12] LABS: ALT 25 U/L (14-59); AST 23 U/L (15-37); Albumin 3.5 g/dL (3.4-5.0); Alkaline Phosphatase 97 U/L (46-116); Anion Gap 8.4 mmol/L (3-11); BUN 10 mg/dL (7-18); Bilirubin, Total 0.3 mg/dL (0.2-1.0); CO2 29.6 mmol/L (21.0-32.0); CREATININE 0.7 mg/dL (0.55-1.02); Chloride 104 mmol/L (98-107); Estimated GFR 119.24 (mL/min/1.73m2); FREE T4 0.93 ng/dL (0.76-1.46); Glucose 112 mg/dL (74-106); Magnesium 1.4 mg/dL (1.8-2.4); Sodium 142 mmol/L (136-145); TSH 3.54 uIU/mL (0.36-3.74); Total Protein 6.1 g/dL (6.4-8.2)
[2024-11-12 12:17] LABS: Potassium 2.9 mmol/L (3.5-5.1)
[2024-11-12 12:19] LABS: Anisocytosis 1+; Diff Comment Diff Reviewed; Polychromasia Present
== END 2024-11-12 11:33 | disposition home or self-care (01) ==
LOC: LBN 11:32
PROVIDERS: PCP Nurse Practitioner Adult Health; Visit Provider Internal Medicine Medical Oncology
DX: C34.91 Malignant neoplasm of unspecified part of right bronchus or lung (principal); C79.51 Secondary malignant neoplasm of bone; Z79.899 Other long term (current) drug therapy
CPT/HCPCS: 80053; 83735; 84439; 84443; 85025

== ENCOUNTER 2024-11-28 12:48 | Outpatient (REF) | payer OTHER, SELFPAY ==
[2024-11-28 12:51] LABS: Abs Immature Grans 0.56 10^3/uL (0.0-0.06); Absolute Eosinophil Count 0.14 10^3/uL (0.0-0.7); Basophils % 0.3 %; Eosinophils % 0.3 %; HCT 32.7 % (36.0-46.0); HGB 11.1 g/dL (11.2-15.7); Immature Grans % 1.2 %; Lymphocytes % 3.7 %; MCH 34.9 pg (27.0-33.0); MCHC 33.9 % (32.0-36.0); MCV 103 fL (80-95); MPV 10.3 fL (8.0-11.0); Neutrophils % 88.5 %; Nucleated RBC 0.1 % (0.0-0.3); Platelet Count 249 10^3/uL (130-400); RBC 3.18 10^6/uL (3.93-5.22); RDW 18.2 % (11.7-14.6); RDW-SD 68.7 fL
[2024-11-28 12:54] LABS: Absolute Basophil Count 0.14 10^3/uL (0.0-0.2); Absolute Lymphocyte Count 1.68 10^3/uL (1.2-3.4); Absolute Monocyte Count 2.73 10^3/uL (0.1-0.8)
[2024-11-28 13:03] LABS: Diff Comment Agrees w/ Instrument; RBC Morphology Normal
[2024-11-28 13:06] LABS: ALT 16 U/L (14-59); AST 21 U/L (15-37); Albumin 3.2 g/dL (3.4-5.0); Alkaline Phosphatase 130 U/L (46-116); Anion Gap 4.3 mmol/L (3-11); BUN 10 mg/dL (7-18); Bilirubin, Total 0.4 mg/dL (0.2-1.0); CO2 31.7 mmol/L (21.0-32.0); CREATININE 0.7 mg/dL (0.55-1.02); Calcium 10.3 mg/dL (8.5-10.1); Chloride 103 mmol/L (98-107); Estimated GFR 119.24 (mL/min/1.73m2); Glucose 127 mg/dL (74-106); Potassium 3.7 mmol/L (3.5-5.1); Sodium 139 mmol/L (136-145); Total Protein 5.7 g/dL (6.4-8.2)
[2024-11-28 13:30] LABS: Magnesium 1.6 mg/dL (1.8-2.4)
[2024-11-28 14:19] LABS: WBC 45.42 10^3/uL (4.4-10.8)
== END 2024-11-28 12:49 | disposition home or self-care (01) ==
LOC: LBN 12:48
PROVIDERS: PCP Nurse Practitioner Adult Health; Visit Provider Internal Medicine Medical Oncology
DX: C34.91 Malignant neoplasm of unspecified part of right bronchus or lung (principal); C79.51 Secondary malignant neoplasm of bone
CPT/HCPCS: 80053; 83735; 85025

== ENCOUNTER 2024-12-17 19:15 | Emergency (ER) | payer SELFPAY ==
[2024-12-17] VITALS (14 sets, daily range): BP systolic 90–121; BP diastolic 59–98; PULSE 97–120; RESP 14–27; TEMP 37.2; O2SAT 92–100
--- NOTE | 2024-12-17 19:53 | ED.GENADUL_ITS ---
Discharge Plan Disposition Patient Disposition: Home Condition: Good Discharge Details Clinical Impression: Medication refill, Pain due to malignant neoplasm metastatic to bone Primary Care Provider: Tania Lezama ED Provider: Bryon Lott Home Meds and New Rx's Prescriptions: No Action naloxone 4 mg/actuation spray,non-aerosol 4 mg intranasal Q2-3M PRN Rx Instructions: spray 1 dose into ONE nostril; alternate nostrils w each dose until help arrives guaifenesin 600 mg tablet extended release 12hr 600 mg PO BID prednisone 20 mg tablet 40 mg PO DAILY potassium chloride 20 mEq tablet,ER particles/crystals 20 meq PO DAILY duloxetine [Cymbalta] 60 mg capsule,delayed release(DR/EC) 60 mg PO DAILY Eliquis 5 mg tablet 5 mg PO BID sennosides-docusate sodium [Senna with Docusate Sodium] 8.6-50 mg tablet 2 tab-cap PO BID PRN multivitamin Tablet 1 tab PO DAILY pantoprazole 40 mg tablet,delayed release (DR/EC) 40 mg PO DAILY benzonatate 200 mg capsule 200 mg PO TID Qty: 90 2RF dorzolamide 2 % drops 1 drp ophthalmic (eye) BID Rx Instructions: Place in both eyes prednisolone acetate 1 % drops,suspension 1 drp ophthalmic (eye) BID levonorgestrel 14 mcg/24 hr (3 yrs) 13.5 mg intrauterine device 1 device intrauterine ONCE Rx Instructions: as a single dose latanoprost 0.005 % drops 1 drp ophthalmic (eye) QPM Rx Instructions: BOTH eyes fentanyl 100 mcg/hr patch 72 hour 1 patch transdermal Q72H MDD 1 patch Qty: 10 0RF oxycodone 10 mg tablet 10 - 20 mg PO Q3H PRN MDD 10 pills PRN (Reason: pain) Qty: 240 0RF albuterol 90 mcg/actuation aerosol 180 mcg inhalation Q4H PRN brimonidine-timolol [Combigan] 0.2-0.5 % drops 1 drp ophthalmic (eye) BID folic acid 1 mg tablet 1 mg PO DAILY prochlorperazine maleate [Compazine] 10 mg tablet 10 mg PO Q6H PRN Discharge Instructions Instructions: Fentanyl Additional Instructions: We have reapplied a fentanyl patch which will last 72 hours. Additionally, we have given you 3 oxycodone tablets to hold you over until your prescriptions can be filled and for breakthrough pain for your metastatic lesions. Please follow-up closely with your managed care specialist. If you notice any worsening of your symptoms, or any new symptoms such as vomiting, diarrhea, fever, chills, shortness of breath, chest pain, numbness, weakness, or fainting , please return immediately to the emergency department for reevaluation. Please follow up with your primary care provider as soon as possible for reassessment and reevaluation. As always, it was a pleasure participating in your medical care today. Referrals: Tania Lezama [Primary Care Provider, Medicine] HPI General Date/Time Provider Initiated Documentation: 12/17/24 19:16 . 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 Patient unfortunately ran out of fentanyl patches on Tuesday, she has been attempting to manage the pain with oxycodone. She was supposed to have a prescription for fentanyl patches filled today, however the pharmacy did not have the patches and expects to have them tomorrow or the next day. She has an appointment with her palliative care team tomorrow, and is here requesting help for breakthrough pain until her prescription is filled. She denies any other new complaints at this time. Patient stated goals are for medication bridging. Related Data Home Medications ?Medication ?Instructions ?Recorded ?Confirmed dorzolamide 2 % eye drops 1 drp ophthalmic (eye) BID 0 08/24/24 12/17/24 latanoprost 0.005 % eye drops 1 drp ophthalmic (eye) Q PM 08/24/24 12/17/24 levonorgestrel 14 mcg/24 hr (up to 1 device intrauteri ne ONCE 08/24/24 12/17/24 3 yrs) 13.5 mg intrauterine device prednisolone acetate 1 % eye 1 drp ophthalmic (eye) BI D 08/24/24 12/17/24 drops,suspension albuterol 90 mcg/actuation aerosol 180 mcg inhalation Q4H PRN 09/28/24 12/17/24 inhaler brimonidine 0.2 %-timolol 0.5 % 1 drp ophthalmic (eye) BID 09/28/24 12/17/24 eye drops (Combigan) folic acid 1 mg tablet 1 mg PO DAILY 09/28/2412/17 prochlorperazine maleate 10 mg 10 mg PO Q6H PRN 12/17/24 tablet (Compazine) apixaban 5 mg tablet (Eliquis) 5 mg PO BID 11/13/24 duloxetine 60 mg capsule,delayed 60 mg PO DAILY 12/17/24 release (Cymbalta) guaifenesin 600 mg tablet, 600 mg PO BID 11/13/2411/26 extended release 12 hr multivitamin 1 tab PO DAILY 11/13/2411/26 naloxone 4 mg/actuation nasal spray 4 mg intranasal Q2 -3M PRN 11/13/24 12/17/24 pantoprazole 40 mg tablet,delayed 40 mg PO DAILY 11/1312/17/24 release potassium chloride 20 mEq 20 meq PO DAILY 11/13/24 tablet,extended release(part/cryst) prednisone 20 mg tablet 40 mg PO DAILY 11/13/2411/26 sennosides 8.6 mg-docusate sodium 2 tab-cap PO BID PRN 11/13/24 12/17/24 50 mg tablet (Senna with Docusate Sodium) benzonatate 200 mg capsule 200 mg PO TID [facility]gh from [facility] 11/20/24 12/17/24 cancer #90 caps fentanyl 100 mcg/hr transdermal 1 patch transdermal Q7 2H #10 ea 12/17/24 12/17/24 patch oxycodone 10 mg tablet 10 - 20 mg (1 - 2 x 10 mg) P O Q3H 12/17/24 12/17/24 PRN PRN pain #240 tabs Previous Rx's ?Medication ?Instructions ?Recorded benzonatate 200 mg capsule 200 mg PO TID COUgh from [facility] 11/20/24 cancer #90 caps fentanyl 100 mcg/hr transdermal 1 patch transdermal Q7 2H #10 ea 12/17/24 patch oxycodone 10 mg tablet 10 - 20 mg (1 - 2 x 10 mg) P O Q3H 12/17/24 PRN PRN pain #240 tabs Allergies Allergy/AdvReac Type Severity Reaction Status Date / Time No Known Allergies Allergy Verified 11/20/24 10:12 General Stated Complaint: RX Refill REX: 3 Exam Narrative Exam Narrative: 1.Const: Well-nourished, Well-developed, appearing stated age 2.Eyes: PERRL, no conjunctival injection, and symmetrical lids. 3.ENT: Atraumatic external nose and ears. Moist MM. Neck: Symmetric, trachea midline, No thyromegaly. 4.CVS: +S1/S2, Peripheral pulses 2+ and equal in all extremities. Brisk capillary refill in all extremities. 5.RESP: Unlabored respiratory effort. Clear to auscultation bilaterally. No wheezes rales or rhonchi 6.GI: Soft, Nontender/Nondistended, No hepatosplenomegaly. No guarding or rebound. 7.MSK: Normocephalic/Atraumatic, Extremities w/o deformity. No cyanosis or clubbing, Normal movement of all extremities 8.Skin: Warm, Dry. No rashes or lesions. Multiple bony metastatic lesions noted on the chest abdomen and pelvis. 9.Neuro: conflict resolution professional II-XII grossly intact. Sensation grossly intact, no focal neurologic deficits. 10.Psych: (AAO) x3. Appropriate mood and affect Course Vital Signs Vital signs: Vital Signs Temperature 37.2 C 12/17/24 19:27 Pulse 118 H 12/17/24 19:27 Respiratory Rate 20 12/17/24 19:27 Blood Pressure 90/65 L 12/17/24 19:27 Pulse Oximetry 99 12/17/24 19:27 Temperature 37.2 C 12/17/24 19:27 Temperature Source Oral 12/17/24 19:27 Pulse 118 H 12/17/24 19:27 Respiratory Rate 20 12/17/24 19:27 Blood Pressure 90/65 L 12/17/24 19:27 Blood Pressure Position Sitting 12/17/24 19:27 Pulse Oximetry 99 12/17/24 19:27 Oxygen Delivery Method Room Air 12/17/24 19:27 Oxygen Flow Rate 0 12/17/24 19:27 Pain Level 9 12/17/24 19:27 Medical Decision Making This is a pleasant 29-year-old -[place] female with a past medical history notably unfortunate for 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 Patient unfortunately ran out of fentanyl patches on Tuesday, she has been attempting to manage the pain with oxycodone. She was supposed to have a prescription for fentanyl patches filled today, however the pharmacy did not have the patches and expects to have them tomorrow or the next day. She has an appointment with her palliative care team tomorrow, and is here requesting help for breakthrough pain until her prescription is filled. She denies any other new complaints at this time. Patient stated goals are for medication bridging. Exam demonstrates an in pain female, multiple bony metastatic lesions palpable on her chest and abdomen. We did contact on-call palliative care, however at this time of night there is no palliative on-call is only hospice. Hospice states that they do not manage palliative care patients for the on-call service. Decision was made to help bridge the patient's pain medication needs. Initially in order of oxycodone this was ordered for home use, 30 mg total, however this was mistakenly given as a single p.o. dose. That being said this is quite a small dose for the nonnarcotic na?ve patient. Even after an hour and a half of observation after the additional 30 mg of oxycodone, the patient still had severe pain leading to crying and significant discomfort. There was no evidence of respiratory depression whatsoever. Decision was made to give fentanyl patch for home use, she still does have additional oxycodones at home. Patient will follow-up with her palliative care team tomorrow morning. Patient otherwise hemodynamically stable. I have extensively reviewed the treatment plan and discharge instructions with the patient and their family. I have addressed all patient concerns at this time. The patient and family was made aware of what symptoms to monitor for that would warrant a return to the emergency department. Discussed the plan with the patient and family, they demonstrate verbal understanding and agreement with our assessment and plan at this time. The documentation in this chart was dictated using [employer] dictation software. Please excuse any dictation errors. 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 Cancer related pain (Acute) Non-small cell lung cancer metastatic to bone (Acute) Left prox Femur (lesser troch), S/P pall radiation x 1 Non-small cell carcinoma of lung, stage 4 (Chronic) Has [place] Leukocytosis (leucocytosis) (Acute) Metastatic lung cancer (metastasis from lung to other site) (Acute) Chronic uveitis of both eyes (Acute) Medical History 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
[2024-12-17] MEDS: oxyCODONE 10 MG TAB 30 MG PO (19:59)
[2024-12-17] MEDS: fentaNYL 100 MCG PATCH TD (21:27)
== END 2024-12-17 21:57 | disposition home or self-care (01) ==
PROVIDERS: Emergency Provider Student in an Organized Health Care Education/Training Program; PCP Nurse Practitioner Adult Health
DX: C79.51 Secondary malignant neoplasm of bone (principal); G89.3 Neoplasm related pain (acute) (chronic)
CPT/HCPCS: 99283 ×2

== ENCOUNTER 2024-12-25 03:32 | Outpatient (RCR) | payer SELFPAY ==
[2024-12-25] MEDS: Normal Saline Flush 10 ML SYR IVP (14:57)
== END 2025-01-24 23:59 | disposition home or self-care (01) ==
LOC: INF 03:32
PROVIDERS: PCP Nurse Practitioner Adult Health; Visit Provider Internal Medicine Medical Oncology
DX: C34.91 Malignant neoplasm of unspecified part of right bronchus or lung (principal); C79.51 Secondary malignant neoplasm of bone
CPT/HCPCS: 96523